=== PATIENT | male | born 1950 | race Caucasian/White ===

== ENCOUNTER → 2020-04-15 16:14 | Outpatient (CLI) | payer BC, SELFPAY ==
[2020-04-15 17:15] LABS: Blood Urea Nitrogen 13 mg/dl (9-20); Estimated Glomerular Filt Rate 84 ml/min (>60); GFR (African American) 102 ML/MIN (>60)
== END ==
PROVIDERS: Visit Provider Family Medicine
DX: D48.7 Neoplasm of uncertain behavior of other specified sites (principal)
CPT/HCPCS: 36415; 82565; 84520

== ENCOUNTER → 2020-04-17 14:34 | Outpatient (CLI) | payer BC, SELFPAY ==
--- NOTE | 2020-04-17 15:25 | CT_ITS ---
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 All CT scans at the facility use one or more dose reduction, viz: automated exposure control, ma/kV adjustment per patient size (including targeted exams where dose is matched to indication, i.e. head), or iterative reconstruction technique. FINDINGS: There is a 3.3 x 2.6 x 3.2 cm complex soft tissue mass in the left neck along the posterior aspect of the submandibular gland lateral to the jugular vein and anterior medial to the sternocleidomastoid. This is heterogeneous in density with areas of internal slight low-density and septations consistent with an enlarged and possibly necrotic lymph node. This is a level IIa node. Inferior to this there is a more solid-appearing andrea area posterior to the sternocleidomastoid and posterior to the jugular vein which measures 3.7 x 2 by 1.9 cm consistent with a level 3 lymph node. The the nasopharynx, uvula, and hypopharynx are unremarkable. There is some asymmetric enlargement of the left vocal fold. This is more prominent appearing on the coronal reformatted images having a somewhat nodular appearance at 1.5 by 1.2 cm. The The epiglottis has an unremarkable appearance. Centrilobular emphysematous changes are present in the lung apices. There is diffuse idiopathic skeletal hyperostosis of the cervical spine. IMPRESSION: 1. Enlarged left vocal fold. Direct visualization suggested. This has a fairly smooth appearance. Neoplasm or polyp involvement is a consideration. 2. Left-sided cervical adenopathy with enlargement of a level IIa and 3 lymph node. Differential diagnosis would include metastatic disease, lymphoma, or reactive process. 3. DISH of the cervical spine Dictated by: Lokesh Razo MD 04/18/2020 07:26 Lokesh Razo MD in [place] 04/18/2020 07:26
== END ==
PROVIDERS: PCP Family Medicine; Visit Provider Family Medicine
DX: D48.7 Neoplasm of uncertain behavior of other specified sites (principal)
CPT/HCPCS: 70491; Q9967

== ENCOUNTER → 2020-05-05 15:40 | Outpatient (CLI) | payer BC, SELFPAY ==
--- NOTE | 2020-05-05 15:47 | XR_ITS ---
PROCEDURE: XR CHEST 2V CLINICAL HISTORY: HX OF HIGH BLOOD PRESSURE COMPARISON: No exams were available for comparison FINDINGS: The cardiomediastinal silhouette and pulmonary vascularity are within normal limits. Atelectatic changes are present in the right infrahilar region. The remaining lungs are clear. No acute bony abnormalities. IMPRESSION: Right middle lobe atelectasis otherwise negative Dictated by: Lokesh Razo MD 05/05/2020 16:36 Lokesh Razo MD in [facility] 05/05/2020 16:36
[2020-05-05 15:57] LABS: Basophils # 0.1 K/mm3 (0-0.2); Basophils % 0.9 % (0.1-2.0); Eosinophils # 0.4 K/mm3 (0.0-0.4); Eosinophils % 4.1 % (0.1-12.0); Hematocrit 45.4 % (42.0-52.0); Hemoglobin 14.8 g/dL (14.1-18.0); Lymphocytes # 2.2 K/mm3 (0.7-4.5); Lymphocytes % 25.8 % (10-50); Mean Corpuscular HGB Conc 32.5 g/dL (31.8-35.4); Mean Corpuscular Hemoglobin 32.1 pg (27.0-31.2); Mean Platelet Volume 8.4 fl (7.4-10.4); Monocytes # 0.7 K/mm3 (0.1-1.0); Monocytes % 7.9 % (1.7-9.3); Neutrophils # 5.3 K/mm3 (1.8-7.8); Neutrophils % 61.3 % (37.0-80.0); Platelet Count 209 K/mm3 (142-424); Red Blood Count 4.59 M/mm3 (4.60-6.20); Red Cell Distribution Width 12.9 % (11.5-17.5); White Blood Count 8.6 K/mm3 (4.8-10.8)
--- NOTE | 2020-05-05 16:07 | ECG_ITS ---
APPROVED REPORT Exam: Resting ECG HR:68 bpm ECG Measurements Heart Rate 68 AXES TN 252 P 52 QRSd 102 QRS 0 QT 420 T 49 QTc 446 <Conclusion> Sinus rhythm with 1st degree AV block with occasional premature ventricular complexes and PAC'S Poor R Wave Progression Abnormal ECG Electronically signed by : Ion Vines, 05/05/2020 17:00:42
[2020-05-05 17:32] LABS: Chloride 94 mmol/L (98-107); Potassium 4.3 mmoL/L (3.5-5.1); Sodium 135 mmol/L (136-145)
[2020-05-05 17:35] LABS: Blood Urea Nitrogen 12 mg/dl (9-20); Estimated Glomerular Filt Rate 84 ml/min (>60); GFR (African American) 102 ML/MIN (>60)
[2020-05-05 17:36] LABS: Anion Gap 10.3 mEq/L (5-15); Calcium 9.5 mg/dl (8.4-10.2); Carbon Dioxide 35 mmol/L (22.0-30.0); Glucose 112 mg/dl (74-100)
[2020-05-05 18:02] LABS: Coronavirus 19 IgG Antibody Negative (Negative); Coronavirus 19 IgM Antibody Negative (Negative)
== END ==
PROVIDERS: Visit Provider Otolaryngology
DX: Z01.89 Encounter for other specified special examinations (principal); C32.0 Malignant neoplasm of glottis; J38.3 Other diseases of vocal cords; R22.1 Localized swelling, mass and lump, neck
CPT/HCPCS: 36415; 71046; 80048; 85025; 86328; 93005

== ENCOUNTER 2020-05-07 08:41 | Day surgery (SDC) | payer BC, SELFPAY ==
[2020-05-05 11:15] VITALS: BMI 32.8
[2020-05-07] VITALS (9 sets, daily range): BP systolic 142–170; BP diastolic 47–87; PULSE 40–89; RESP 15–18; TEMP 36.3–36.6; O2SAT 92–96
--- NOTE | 2020-05-07 09:14 | ECG_ITS ---
APPROVED REPORT Exam: Resting ECG HR:77 bpm ECG Measurements Heart Rate 77 AXES WI 256 P 6 QRSd 92 QRS -4 QT 398 T 49 QTc 450 <Conclusion> Sinus rhythm with 1st degree AV block with frequent premature ventricular complexes in a pattern of bigeminy Old septal changes Abnormal ECG Electronically signed by : Jason Perez, 05/08/2020 07:21:52
--- NOTE | 2020-05-07 09:17 | SUR.PREOP ---
SULTANA PATTERSON NOTIFIED OF HR 38-40. NEW ORDER TO REPEAT EKG. EKG FROM 05/05/20 SHOWED NSR WITH 1ST DEGREE AV BLOCK WITH PVC'S AND PACS.
--- NOTE | 2020-05-07 09:33 | SUR.PREOP ---
Indra STEARNS ICER MACHINE OPERATOR NOTIFIED OF NEW EKG RESULTS. PROCEDURE WILL PROCEED BUT DISCUSSED WITH PT HIS NEED TO FOLLOW UP WITH DR. DANG ABOUT ABNORMAL RESULTS. PT VERBALIZED UNDERSTANDING.
--- NOTE | 2020-05-07 12:44 | HMH.ANESCL ---
[facility] Anesthesia Checklist - Patient Identification Patient Identification: Arm Band, Verbal (Name & ) - Structural Data Admitted From: Home Planned Operative Procedure/s: Microlaryngoscopy Consent for Planned Operative Procedure(s) Verified: Yes Verified Documents: Surgical Consent, History and Physical - NPO Status Verified Time NPO: 00:00 - Chart Verification Results Verified: CBC, BMP - Additional verifications Anesthesia Reactions: No Hx Blood Transfusions: No - Airway Assessment C-Spine Mobility Assessed: Yes TMJ Mobility Assessed: Yes Dentition: Dentures-good fit (Upper) - Neurological Assessment Level of Consciousness: Awake, Alert, Appropriate, Follows Commands Hx Seizures: No Numbness or tingling in extremities: No - Anesthesia Plan Anesthesia Risk discussed: Yes Anesthesia Plan: Verified ASA Class: III Anesthesia Type: General [facility] History I have reviewed the patient's past medical history: Yes Medical History: Reports:: Hyperlipidemia, Hypertension Denies:: Cancer, Diabetes Mellitus Type 1, Diabetes Mellitus Type 2, Internal Pacemaker, MRSA, Seizures *Have you ever received a pneumonia vaccine?: No *Have you received a flu vaccine this season?: No Other Medical History: Reports: Hypothyroidism, Thyroid Disease Comment:: obesity Anesthesia experience/problems:: No prior complications Laterality Cases: Bilateral: Total Knee Replacement Other Surgeries: Yes: Other. No: Pacemaker Amputation: No Fractures: No - *Social History Smoking Status: Former smoker (18 years ago) Alcohol Intake: never Substance Use Type: denies use *Occupational Status:: employed Housing: house Household Members: spouse *Travel in the last 8 weeks: None Family Hx:: Hypertension, Hyperlipidemia
--- NOTE | 2020-05-07 12:47 | HMH.ANESI ---
[facility] Anesthesia Record Part I Intake, IV Amount: 700 Estimated blood loss (mL): 2 Urine output (mL): 0 (NM) Blood Products used (#): none Blood Pressure: 153/86 SaO2: 96 Pulse Rate: 89 Respiratory Rate: 15 Temperature: 97.6 F Patient is:: Awake, Mask O2, Stable Stable to PACU at:: 12:40
--- NOTE | 2020-05-07 13:55 | P.OP_ITS ---
Date of procedure: 05/07/20 Pre-op Diagnosis:: 1. Lesion left vocal cord 2. Sensation of a lump in the left neck 3. Morbid obesity Post-op Diagnosis:: same Procedure performed:: 1. Microlaryngoscopy with biopsy of left vocal cord Surgeon:: Barrera Smith MD VINYL TOP INSTALLER:: Josué Hayes Anesthesia: GETA Estimated blood loss (mL): 2 Operative findings:: same Operative note:: With the patient under general anesthesia maintained with a endotracheal tube which was a little difficult to place by the anesthesiologist and resulted in a little bit of bleeding, the anterior commissure SlimLine laryngoscope was placed in the larynx and hypopharynx was examined. There was some fresh blood on the anterior part of the left vocal cord and on the endotracheal tube. The larynx was irrigated and all of the blood was cleared it probably was less than 2 cc. There was a lump involving the anterior quarter of the left vocal cord, which had a vascular appearance to it. The right vocal cord was normal in both piriform sinuses were normal. Using the straight mini cup forceps 2 biopsies were taken from the mass in the anterior aspect of the left vocal cord and submitted for routine pathology. There was minimal bleeding and that was stopped with topical epinephrine. Because of the vascularity of the lesion there was concerned that there could be more serious bleeding and accordingly the lump was not removed in entirety but a tissue analysis will be obtained first. Patient tolerated procedure well and was sent to recovery in good general condition. Condition: stable Disposition: PACU Complications:: none
--- NOTE | 2020-05-08 06:54 | P.PN_ITS ---
[facility] Anesthesia Record Part II Discharge Time: 13:10 Destination: Surgical Day Care (OP Surgery) PACU nurse assessment reviewed?: Yes Patient Condition:: Good Anesthesia Complications:: None Swallowing reflex intact?: Yes Cyanosis?: No Blood Pressure: 146/81 Pulse Rate: 62 Temperature: 97.6 F Mental Status: Alert & Oriented Pain level:: 0 Nausea and/or vomitting:: None Intake, IV Amount: 0 (Normovolemic)
[2020-05-08 06:55] VITALS: BP 146/81; PULSE 62; TEMP 36.4
== END 2020-05-07 13:36 | disposition home or self-care (01) ==
LOC: OR 08:44
PROVIDERS: PCP Family Medicine; Visit Provider Otolaryngology
PROC: 0CJS8ZZ Inspection of Larynx, Via Natural or Artificial Opening Endoscopic (ICD-10-PCS; CPT 31536; principal; 2020-05-07 10:15)
DX: J38.3 Other diseases of vocal cords (principal); R22.1 Localized swelling, mass and lump, neck; E66.9 Obesity, unspecified; Z68.32 Body mass index [BMI] 32.0-32.9, adult; I10 Essential (primary) hypertension; E78.5 Hyperlipidemia, unspecified; E03.9 Hypothyroidism, unspecified; Z96.653 Presence of artificial knee joint, bilateral; Z87.891 Personal history of nicotine dependence; Z83.438 Family history of other disorder of lipoprotein metabolism and other lipidemia; Z82.49 Family history of ischemic heart disease and other diseases of the circulatory system; Z79.899 Other long term (current) drug therapy
CPT/HCPCS: 31536; 93005; 96374; 96375; J0330; J2405

== ENCOUNTER → 2020-05-20 06:27 | Outpatient (CLI) | payer BC, SELFPAY ==
--- NOTE | 2020-05-20 06:28 | CT_ITS ---
PROCEDURE: CT CHEST WO CON CLINICAL INDICATION: ex smoker Former smoker new diagnosis of squamous cell ca; bx of left vocal cord 05/07/[address] neck, 04/17/20 COMPARISON: No exams were available for comparison TECHNIQUE: Axial images obtained with sagittal and coronal reformats. All CT scans at the facility use one or more dose reduction, viz: automated exposure control, ma/kV adjustment per patient size (including targeted exams where dose is matched to indication, i.e. head), or iterative reconstruction technique. FINDINGS: HEART AND MEDIASTINAL STRUCTURES: There is mild cardiomegaly. Coronary artery calcifications are present. No mediastinal or hilar mass or adenopathy. LUNGS AND PLEURAL SPACES: Centrilobular emphysema with COPD and scattered areas of scarring. There is linear density in the right upper lobe suggesting scarring or atelectatic change. No suspicious nodules are identified. There is a faint 3 mm opacity in the right upper lobe image 24 series 3 nonspecific too small to categorize. No effusions or infiltrates. BONY STRUCTURES: Degenerative changes are present in thoracic spine with osteophytosis with DISH of the mid and lower thoracic spine. DISH also noted of the lower cervical spine. Prominent osteophytes are present at the manubrial and body of the sternum junction. UPPER ABDOMEN: There is a subtle low-density area right aspect of the kidney anteriorly measuring 1.7 cm. This is incompletely imaged and indeterminate. ADDITIONAL FINDINGS: No other significant abnormalities. IMPRESSION: 1. Centrilobular emphysema with COPD and scattered areas of scarring. Faint 3 mm opacity right upper lobe nonspecific too small to categorize. Six-month follow-up may confirm short term stability. 2. No suspicious pulmonary nodules evident and no evidence of mediastinal or hilar adenopathy. 3. Subtle low-density area of the right kidney. Ultrasound may further characterize as cystic or solid. Dictated by: Lokesh Razo MD 05/21/2020 10:38 Lokesh Razo MD in [place] 05/21/2020 10:38
--- NOTE | 2020-05-20 06:28 | CA_ITS ---
APPROVED REPORT EXAM: Comprehensive 2D, Doppler, and color-flow Echocardiogram Radial Router Operator: Nelly Marshall RT(R) Ht: 5 ft 11 in Wt: 253lbs BSA: 2.33 BP: 189/84 mmHg Indications: SOA, bradycardia, CAD, ex smoker, HTN, hyperlipidemia 2D Dimensions LVOT 2.18 cm (M/F) 1.5-2.5 M-Mode Dimensions RVDd 3.09 cm (0.9-2.6) LVDd 5.43 cm (3.5-5.7) LVDs 4.30 cm (3.5-5.7) IVSd 0.99 cm (0.6-1.1) PWd 1.03 cm (0.6-1.1) EF (Teich) 41.90% FS 20.80% EDV (Teich) 143.10 mL ESV (Teich) 83.10 mL Left Ventricle Technically difficult study because of the patient factors and poor acoustic windows, despite the use of definitely contrast endocardial surfaces are poorly visualized. Left atrium is mildly enlarged, left ventricle is normal size, mild concentric left ventricular hypertrophy, visually estimated ejection fraction 50%, there appears to be mild hypokinesis involving the mid to distal septum and apical wall. Diastolic parameters are inconclusive. Right Ventricle Right atrium and right ventricle are normal size and contractility. Aortic Valve Aortic valve is minimally thickened and fibrosed, there is no aortic stenosis or aortic insufficiency. Mitral Valve Multiple leaflets are minimally thickened, there is mild mitral regurgitation. Tricuspid Valve Tricuspid valve is grossly normal, there is mild tricuspid regurgitation, tricuspid regurgitation jet versus inadequate for calculation of the right ventricular systolic pressure. Pulmonic Valve Pulmonic valve is poorly visualized. Great Vessels Aortic root is normal size. Pericardium No significant pericardial effusion noted Conclusion 1. Technically difficult study as described above. 2. Mildly in the left atrium, normal left ventricular size, mild concentric left ventricular hypertrophy, visually estimated ejection fraction 50% with segmental wall motion abnormality described above, definitely contrast was utilized to delineate the endocardial surfaces, there is no left ventricular thrombus seen. Diastolic parameters are inconclusive. 3. Mild mitral and tricuspid regurgitation. Electronically signed by : Diomedes Hewitt, 05/21/2020 13:24:36
--- NOTE | 2020-05-20 06:28 | CA_ITS ---
APPROVED REPORT Exam: Pharmacologic Technologist: Patsy Stanford Ht: 5 ft 11 in Wt: 240 lbs BSA: 2.28 m2 HR: 51 bpm BP: 162/67 mmHg Indications: Shortness of Breath Medical History Medications: Lisinopril,,,,, Levothyroxine,,,,, Metoprolol,,,,, Atorvastatin,,,,, HCTZ,,,,, SpirOnolactone,,,,, OmeGA 3,,,,, Stress Test Details Test: LEXISCAN HR Resting HR: 50 bpm Max Heart Rate (APMHR): 153 bpm Max HR Achieved: 77 bpm Target HR (85% APMHR): 130 bpm % of APMHR: 50 Recovery HR: 64 bpm BP Resting BP: 162.0/67.0 mmHg Max BP: 169.0/72.0 mmHg Recovery BP: 144.0/78.0 mmHg ECG Clinical Exercise duration: 04:06 min Highest Stage Achieved: Exercise capacity: 1.0 METs Stress ECG Conclusion Resting ECG: Sinus bradycardia, frequent PVCs, Ventricular couplets, cannot rule out old anterior-septal OK. Symptoms: Mild chest discomfort, mild stomach discomfort, mild malaise. Arrhythmias/Ectopy: Frequent PVCs, periods of ventricular bigeminy, rare ventricular couplets. ST-T Changes: 0.5 mm - [address] depression inferiorly. Conclusion: Unremarkable Lexiscan stress. Myoview images reported separately. Test Summary REST . . . . . . . Resting REST 05:18 . . 50 . 162/ 67 . . Stage 1 . . . . . . . Myoview Injected Stage 1 01:00 . . 64 . . . . Stage 2 01:00 . . 69 . . . . Stage 3 01:00 . . 62 . 157/ 99 . . Stage 4 01:00 . . 64 . . . . Stage 4 01:06 . . 70 . . . Stop exercise at 04:06 RECOVERY 01:00 . . 69 . 169/ 72 . . RECOVERY 02:00 . . 68 . 169/ 73 . . RECOVERY 03:00 . . 63 . 169/ 73 . . RECOVERY 03:41 . . 61 . 144/ 78 . . Electronically signed by : Diomedes Hewitt, 05/22/2020 13:51:28
--- NOTE | 2020-05-20 06:28 | NM_ITS ---
APPROVED REPORT Exam: Nuclear Stress Test Indication: HTN, HYPERLIPIDEMIA, SOB, ABN EKG Patient Location: Outpatient Stress Tech: Patsy Stanford NM Tech:Tricia Abernathy, ARRT, RT (R)(N) Ht: 5 ft 11 in Wt: 240 lbs HR: 51 bpm BP: 162/67 mmHg BSA: 2.28 m2 BMI: 33.4 Procedure: Patient received a 0.4 mg of intravenous Lexiscan, resting heart rate 51 bpm, resting blood pressure 162/67 mmHg, with Lexiscan maximum heart rate achived was 70 bpm which is Less than 85 % of the maximum predicted heart rate and blood pressure was 157/99 mmHg. MILD C.P. Electrocardiogram Resting electrocardiogram showed sinus rhythm with frequent premature ectopic beats, with Lexiscan there is less than 1.[address] segment depression noted from the baseline EKG. The EKG portion of the Lexiscan is nondiagnostic. Cardiac Stress and Resting SPECT Images: Cardiac Stress and Resting SPECT images were obtained using technetium 99m Myoview 32.3 mCi stress and 10.18 mCi at rest. Gated SPECT for the analysis of segmental wall motion and calculation of the ejection fraction also done. Cardiac stress and resting SPECT images show fixed defect involving the inferior and posterior basal wall with decreased contractility gated SPECT is likely secondary to myocardial scarring without significant otis-infarct ischemia. Computer derived ejection fraction is 23% with marked inferior and posterior basal wall hypokinesis, right ventricle is mildly enlarged with normal contractility. However during the study frequent premature ectopic complexes were present which may underestimate the ejection fraction by gated SPECT. Conclusion: 1. The EKG portion of the Lexiscan Myoview is nondiagnostic pain 2. Scintigraphic evidence of myocardial scarring involving the inferior posterior basal wall, computer derived ejection fraction is 23% as described above with segmental wall motion abnormality, right ventricle is mildly enlarged with normal contractility. 3. Abnormal Lexiscan Myoview study. Electronically signed by : Diomedes Hweitt, 05/22/2020 13:56:27
--- NOTE | 2020-05-20 08:22 | HMH.ITSHM ---
Current Home Medications as stated by this patient Jason Marroquin or primary care sales representative. []SPIRONOLACTONE OMEGA 3 METOPROLOL LISINOPRIL LEVOTHYROXINE HCTZ ATORVASTATIN
[2020-05-20 10:21] LABS: Anion Gap 10.5 mEq/L (5-15); Blood Urea Nitrogen 18 mg/dl (9-20); Calcium 9.6 mg/dl (8.4-10.2); Carbon Dioxide 33 mmol/L (22.0-30.0); Chloride 96 mmol/L (98-107); Estimated Glomerular Filt Rate 75 ml/min (>60); GFR (African American) 90 ML/MIN (>60); Glucose 129 mg/dl (74-100); Potassium 4.5 mmoL/L (3.5-5.1); Sodium 135 mmol/L (136-145)
[2020-05-20 10:30] LABS: NT Pro Brain Natriuretic Pep. 737 pg/mL (0-125)
== END ==
PROVIDERS: PCP Family Medicine; Visit Provider Internal Medicine Cardiovascular Disease
DX: R06.00 Dyspnea, unspecified (principal); R94.31 Abnormal electrocardiogram [ECG] [EKG]; R00.0 Tachycardia, unspecified; E78.5 Hyperlipidemia, unspecified; I10 Essential (primary) hypertension; G47.33 Obstructive sleep apnea (adult) (pediatric); R06.83 Snoring; R40.0 Somnolence; R60.9 Edema, unspecified; Z87.891 Personal history of nicotine dependence
CPT/HCPCS: 36415; 71250; 78452; 80048; 83880; 93017; 93225; 93226; 93306; A9502; J2785; Q9957

== ENCOUNTER → 2020-05-21 15:53 | Outpatient (CLI) | payer BC, SELFPAY | PROVIDERS: PCP Family Medicine; Visit Provider Internal Medicine Cardiovascular Disease | DX: G47.33 Obstructive sleep apnea (adult) (pediatric) (principal); R40.0 Somnolence; R06.83 Snoring | CPT/HCPCS: G0399 ==

== ENCOUNTER → 2020-05-28 13:44 | Outpatient (CLI) | payer BC, SELFPAY ==
--- NOTE | 2020-05-28 13:52 | US_ITS ---
PROCEDURE: US KIDNEY CLINICAL INDICATION: MALIGNANT NEOPLASM OF GLOTTIS COMPARISON: CT CT CHEST WO CON from 05/20/2020 FINDINGS: The right kidney is 12 x 6 by 5 cm. There is a 2 cm cyst in the upper pole. No hydronephrosis. The left kidney is 10 x 4 by 5 cm. No hydronephrosis or renal mass evident. Bilateral renal blood flow is noted. IMPRESSION: 2 cm cyst upper pole right kidney otherwise negative bilateral renal ultrasound Dictated by: Lokesh Razo MD 05/29/2020 07:23 Lokesh Razo MD in [place] 05/29/2020 07:23
== END ==
PROVIDERS: PCP Family Medicine; Visit Provider Internal Medicine Medical Oncology
DX: C32.0 Malignant neoplasm of glottis (principal)
CPT/HCPCS: 76770

== ENCOUNTER → 2020-06-02 16:49 | Outpatient (CLI) | payer BC, SELFPAY ==
[2020-06-02 17:03] LABS: Basophils # 0.1 K/mm3 (0-0.2); Basophils % 0.6 % (0.1-2.0); Eosinophils # 0.4 K/mm3 (0.0-0.4); Eosinophils % 3.9 % (0.1-12.0); Hematocrit 44.6 % (42.0-52.0); Hemoglobin 15.4 g/dL (14.1-18.0); Lymphocytes # 2.2 K/mm3 (0.7-4.5); Lymphocytes % 23.4 % (10-50); Mean Corpuscular HGB Conc 34.5 g/dL (31.8-35.4); Mean Corpuscular Hemoglobin 33.2 pg (27.0-31.2); Mean Corpuscular Volume 96.2 fl (80-94); Mean Platelet Volume 8.8 fl (7.4-10.4); Monocytes # 0.6 K/mm3 (0.1-1.0); Monocytes % 6.5 % (1.7-9.3); Neutrophils # 6.3 K/mm3 (1.8-7.8); Neutrophils % 65.6 % (37.0-80.0); Platelet Count 239 K/mm3 (142-424); Red Blood Count 4.64 M/mm3 (4.60-6.20); Red Cell Distribution Width 13.4 % (11.5-17.5); White Blood Count 9.6 K/mm3 (4.8-10.8)
[2020-06-02 19:15] LABS: Chloride 94 mmol/L (98-107); Sodium 134 mmol/L (136-145)
[2020-06-02 19:16] LABS: Potassium 4.6 mmoL/L (3.5-5.1)
[2020-06-02 19:18] LABS: Blood Urea Nitrogen 15 mg/dl (9-20); Estimated Glomerular Filt Rate 84 ml/min (>60); GFR (African American) 102 ML/MIN (>60)
[2020-06-02 19:19] LABS: Anion Gap 16.6 mEq/L (5-15); Calcium 9.7 mg/dl (8.4-10.2); Carbon Dioxide 28 mmol/L (22.0-30.0); Glucose 99 mg/dl (74-100)
[2020-06-02 20:52] LABS: Coronavirus 19 IgG Antibody Negative (Negative); Coronavirus 19 IgM Antibody Negative (Negative)
== END ==
PROVIDERS: Visit Provider Internal Medicine
DX: Z01.818 Encounter for other preprocedural examination (principal); R06.00 Dyspnea, unspecified; R94.30 Abnormal result of cardiovascular function study, unspecified
CPT/HCPCS: 36415; 80048; 85025; 86328

== ENCOUNTER 2020-06-03 08:54 | Day surgery (SDC) | payer BC, SELFPAY ==
[2020-06-03] VITALS (11 sets, daily range): BP systolic 97–160; BP diastolic 50–91; PULSE 51–71; RESP 20; TEMP 36.1; O2SAT 92–96; BMI 34.8
--- NOTE | 2020-06-03 | IR_ITS ---
APPROVED REPORT Patient Location: Outpatient PROCEDURES Left heart catheterization Left ventriculogram Selective coronary angiogram INDICATION High risk abnormal Myoview, Angina pectoris Informed consent was obtained prior to the procedure. COMPLICATIONS NONE Estimated Blood Loss: LESS THAN 10 ML TECHNIQUE One percent lidocaine used to anesthetize the right anterior aspect of the wrist. The right radial artery was accessed via the Seldinger technique. A 6 Maltese sheath was placed in the right radial artery. 2.5 mg of verapamil, 800 mcg of nitroglycerin, 1mg Lidocaine and 5000 U Heparin were given through the arterial sheath. The Poppa and 4 Maltese JL4 catheter were also used to perform left heart catheterization, left ventriculogram and selective coronary angiogram. At the end of the procedure the sheath was removed good hemostasis was achieved using Traclet band, patient was transferred to the postop holding area in stable condition. ANGIOGRAPHIC RESULTS The left main artery Normal The left anterior descending artery Has proximal 10% luminal irregularities followed by mid vessel 10% luminal irregularities The circumflex artery Dominant vessel with diffuse 10% luminal irregularities The right coronary artery Small nondominant proximally subtotally occluded. The distal vessel fills via bridging collaterals and is a small caliber vessel supplying a small amount of myocardium The BROTHERS ventriculogram reveals Preserved at 55 The left ventricular end-diastolic pressure 15 mmHg IMPRESSION Severe single-vessel coronary disease as described above which correlates perfectly to the Myoview Mild disease in the LAD and dominant circumflex artery Preserved ejection fraction Elevated LVEDP PLAN 1. Continue medical management Electronically signed by : Ramesh Cerda, 06/03/2020 11:35:53
== END 2020-06-03 14:24 | disposition home or self-care (01) ==
LOC: CATHLAB 08:55
PROVIDERS: PCP Internal Medicine Cardiovascular Disease; Visit Provider Internal Medicine
DX: I25.118 Atherosclerotic heart disease of native coronary artery with other forms of angina pectoris (principal); R94.39 Abnormal result of other cardiovascular function study; E03.9 Hypothyroidism, unspecified; I10 Essential (primary) hypertension; Z87.891 Personal history of nicotine dependence; E78.5 Hyperlipidemia, unspecified; Z79.899 Other long term (current) drug therapy
CPT/HCPCS: 93458; 99152; 99153; C1725; C1760; C1769; J1644; Q9967

== ENCOUNTER → 2020-07-03 11:49 | Outpatient (CLI) | payer BC, SELFPAY | PROVIDERS: PCP Family Medicine; Visit Provider Internal Medicine Medical Oncology | DX: Z20.828 Contact with and (suspected) exposure to other viral communicable diseases (principal); U07.1 COVID-19 | CPT/HCPCS: U0003 ==

== ENCOUNTER 2020-07-07 12:19 | Outpatient (CLI) | payer BC, SELFPAY ==
[2020-07-07 12:20] VITALS: BMI 44.1
[2020-07-07 12:55] LABS: Basophils # 0.1 K/mm3 (0-0.2); Basophils % 0.6 % (0.1-2.0); Eosinophils # 0.3 K/mm3 (0.0-0.4); Eosinophils % 2.5 % (0.1-12.0); Hematocrit 42.7 % (42.0-52.0); Hemoglobin 14.4 g/dL (14.1-18.0); Lymphocytes # 1.9 K/mm3 (0.7-4.5); Lymphocytes % 18.5 % (10-50); Mean Corpuscular HGB Conc 33.7 g/dL (31.8-35.4); Mean Corpuscular Hemoglobin 32.5 pg (27.0-31.2); Mean Corpuscular Volume 96.5 fl (80-94); Mean Platelet Volume 9.2 fl (7.4-10.4); Monocytes # 0.5 K/mm3 (0.1-1.0); Monocytes % 4.6 % (1.7-9.3); Neutrophils # 7.6 K/mm3 (1.8-7.8); Neutrophils % 73.9 % (37.0-80.0); Platelet Count 253 K/mm3 (142-424); Red Blood Count 4.43 M/mm3 (4.60-6.20); Red Cell Distribution Width 12.7 % (11.5-17.5); White Blood Count 10.2 K/mm3 (4.8-10.8)
[2020-07-07 13:15] LABS: Chloride 96 mmol/L (98-107)
[2020-07-07 13:16] LABS: Potassium 4.1 mmoL/L (3.5-5.1); Sodium 133 mmol/L (136-145)
[2020-07-07 13:18] LABS: Alanine Aminotransferase 35 U/L (12-78); Alkaline Phosphatase 76 U/L (38-126); Aspartate Amino Transferase 35 U/L (17-59); Bilirubin,Total 0.7 mg/dl (0.2-1.3); Blood Urea Nitrogen 16 mg/dl (9-20); Creatinine Clearance Estimated 59 mL/min (50-200); Estimated Glomerular Filt Rate 74 ml/min (>60); GFR (African American) 90 ML/MIN (>60)
[2020-07-07 13:19] LABS: Albumin Level 4.2 g/dl (3.5-5.0); Albumin/Globulin Ratio 1.3 (1.1-1.8); Anion Gap 10.1 mEq/L (5-15); Calcium 9.1 mg/dl (8.4-10.2); Carbon Dioxide 31 mmol/L (22.0-30.0); Globulin 3.2 g/dL (1.3-3.2); Glucose 195 mg/dl (74-100); Total Protein,Serum 7.4 g/dl (6.3-8.2)
[2020-07-07 13:25] VITALS: BP 124/65; PULSE 49; RESP 20; TEMP 36.4; O2SAT 98
[2020-07-07 14:05] VITALS: BP 111/62; PULSE 50; RESP 20; O2SAT 97
[2020-07-07 14:35] VITALS: BP 125/60; PULSE 48; RESP 20; O2SAT 97
[2020-07-07 14:45] VITALS: BP 119/69; PULSE 51; RESP 20; O2SAT 98
== END 2020-07-07 14:45 | disposition home or self-care (01) ==
LOC: INF 12:19
PROVIDERS: Visit Provider Internal Medicine Medical Oncology
DX: Z51.11 Encounter for antineoplastic chemotherapy (principal); C76.0 Malignant neoplasm of head, face and neck
CPT/HCPCS: 80053; 85025; 96413; J8501; J9045; Q0166

== ENCOUNTER 2020-07-14 11:30 | Outpatient (CLI) | payer BC, SELFPAY ==
[2020-07-14 11:42] VITALS: BMI 43.0
[2020-07-14 12:16] LABS: Basophils % 0.3 % (0.1-2.0); Eosinophils # 0.4 K/mm3 (0.0-0.4); Hematocrit 42.4 % (42.0-52.0); Hemoglobin 14.5 g/dL (14.1-18.0); Lymphocytes # 1.8 K/mm3 (0.7-4.5); Lymphocytes % 14.7 % (10-50); Mean Corpuscular HGB Conc 34.2 g/dL (31.8-35.4); Mean Corpuscular Hemoglobin 33.1 pg (27.0-31.2); Mean Corpuscular Volume 96.7 fl (80-94); Mean Platelet Volume 9.1 fl (7.4-10.4); Monocytes # 0.5 K/mm3 (0.1-1.0); Monocytes % 4.3 % (1.7-9.3); Neutrophils # 9.3 K/mm3 (1.8-7.8); Neutrophils % 77.7 % (37.0-80.0); Platelet Count 237 K/mm3 (142-424); Red Blood Count 4.39 M/mm3 (4.60-6.20); Red Cell Distribution Width 13.5 % (11.5-17.5)
[2020-07-14 12:24] LABS: Potassium 4.2 mmoL/L (3.5-5.1); Sodium 133 mmol/L (136-145)
[2020-07-14 12:26] LABS: Alanine Aminotransferase 36 U/L (12-78); Aspartate Amino Transferase 28 U/L (17-59); Blood Urea Nitrogen 30 mg/dl (9-20); Creatinine Clearance Estimated 59 mL/min (50-200); Estimated Glomerular Filt Rate 74 ml/min (>60); GFR (African American) 90 ML/MIN (>60)
[2020-07-14 12:27] LABS: Albumin Level 4.2 g/dl (3.5-5.0); Albumin/Globulin Ratio 1.3 (1.1-1.8); Alkaline Phosphatase 70 U/L (38-126); Calcium 9.2 mg/dl (8.4-10.2); Carbon Dioxide 31 mmol/L (22.0-30.0); Globulin 3.3 g/dL (1.3-3.2); Glucose 176 mg/dl (74-100); Total Protein,Serum 7.5 g/dl (6.3-8.2)
[2020-07-14 12:30] VITALS: BP 101/53; PULSE 51; RESP 18; TEMP 36.4; O2SAT 99
[2020-07-14 13:00] VITALS: BP 93/41; PULSE 48; RESP 18; O2SAT 98
[2020-07-14 13:30] VITALS: BP 104/59; PULSE 56; RESP 18; O2SAT 98
[2020-07-14 13:40] VITALS: BP 102/58; PULSE 52; RESP 18; O2SAT 98
[2020-07-14 13:52] LABS: Anion Gap 11.2 mEq/L (5-15); Chloride 95 mmol/L (98-107)
== END 2020-07-14 13:45 | disposition home or self-care (01) ==
LOC: INF 11:40
PROVIDERS: Visit Provider Internal Medicine Medical Oncology
DX: Z51.11 Encounter for antineoplastic chemotherapy (principal); C76.0 Malignant neoplasm of head, face and neck
CPT/HCPCS: 80053; 85025; 96413; J8501; J9045; Q0166

== ENCOUNTER 2020-07-21 11:18 | Outpatient (CLI) | payer BC, SELFPAY ==
[2020-07-21 11:19] VITALS: BMI 43.0
[2020-07-21 12:01] LABS: Basophils # 0.1 K/mm3 (0-0.2); Basophils % 0.6 % (0.1-2.0); Eosinophils # 0.2 K/mm3 (0.0-0.4); Eosinophils % 1.6 % (0.1-12.0); Hematocrit 42.9 % (42.0-52.0); Hemoglobin 14.8 g/dL (14.1-18.0); Lymphocytes # 1.2 K/mm3 (0.7-4.5); Lymphocytes % 12.9 % (10-50); Mean Corpuscular HGB Conc 34.4 g/dL (31.8-35.4); Mean Corpuscular Hemoglobin 33.1 pg (27.0-31.2); Mean Corpuscular Volume 96.1 fl (80-94); Mean Platelet Volume 8.7 fl (7.4-10.4); Monocytes # 0.6 K/mm3 (0.1-1.0); Monocytes % 6.8 % (1.7-9.3); Neutrophils # 7.1 K/mm3 (1.8-7.8); Platelet Count 220 K/mm3 (142-424); Red Blood Count 4.47 M/mm3 (4.60-6.20); Red Cell Distribution Width 13.4 % (11.5-17.5); White Blood Count 9.1 K/mm3 (4.8-10.8)
[2020-07-21 12:02] LABS: Chloride 96 mmol/L (98-107); Potassium 4.4 mmoL/L (3.5-5.1); Sodium 134 mmol/L (136-145)
[2020-07-21 12:05] LABS: Alanine Aminotransferase 28 U/L (12-78); Albumin Level 4.6 g/dl (3.5-5.0); Albumin/Globulin Ratio 1.2 (1.1-1.8); Alkaline Phosphatase 99 U/L (38-126); Anion Gap 12.4 mEq/L (5-15); Aspartate Amino Transferase 25 U/L (17-59); Bilirubin,Total 0.6 mg/dl (0.2-1.3); Blood Urea Nitrogen 24 mg/dl (9-20); Carbon Dioxide 30 mmol/L (22.0-30.0); Creatinine Clearance Estimated 59 mL/min (50-200); Estimated Glomerular Filt Rate 74 ml/min (>60); GFR (African American) 90 ML/MIN (>60); Globulin 3.8 g/dL (1.3-3.2); Total Protein,Serum 8.4 g/dl (6.3-8.2)
[2020-07-21 12:06] LABS: Calcium 9.4 mg/dl (8.4-10.2); Glucose 88 mg/dl (74-100)
[2020-07-21 12:17] VITALS: BP 124/56; PULSE 58; RESP 18; TEMP 36.4; O2SAT 98
[2020-07-21 12:47] VITALS: BP 122/54; PULSE 59; RESP 18; O2SAT 98
[2020-07-21 13:17] VITALS: BP 118/51; PULSE 51; RESP 18; O2SAT 97
[2020-07-21 13:35] VITALS: BP 116/61; PULSE 50; RESP 18; O2SAT 98
== END 2020-07-21 13:35 | disposition home or self-care (01) ==
LOC: INF 11:18
PROVIDERS: PCP Family Medicine; Visit Provider Internal Medicine Medical Oncology
DX: Z51.11 Encounter for antineoplastic chemotherapy (principal); C76.0 Malignant neoplasm of head, face and neck
CPT/HCPCS: 80053; 85025; 96413; J8501; J9045; Q0166

== ENCOUNTER → 2020-07-27 12:36 | Outpatient (CLI) | payer BC, SELFPAY ==
[2020-07-27 13:30] LABS: Basophils % 0.3 % (0.1-2.0); Eosinophils # 0.2 K/mm3 (0.0-0.4); Eosinophils % 2.3 % (0.1-12.0); Hematocrit 41.2 % (42.0-52.0); Lymphocytes % 12.3 % (10-50); Mean Corpuscular Hemoglobin 32.4 pg (27.0-31.2); Mean Corpuscular Volume 95.2 fl (80-94); Mean Platelet Volume 8.5 fl (7.4-10.4); Monocytes # 0.6 K/mm3 (0.1-1.0); Monocytes % 7.3 % (1.7-9.3); Neutrophils # 6.6 K/mm3 (1.8-7.8); Neutrophils % 77.9 % (37.0-80.0); Platelet Count 201 K/mm3 (142-424); Red Blood Count 4.32 M/mm3 (4.60-6.20); Red Cell Distribution Width 13.8 % (11.5-17.5); White Blood Count 8.5 K/mm3 (4.8-10.8)
[2020-07-27 14:31] LABS: Chloride 98 mmol/L (98-107); Potassium 4.9 mmoL/L (3.5-5.1); Sodium 134 mmol/L (136-145)
[2020-07-27 14:34] LABS: Alanine Aminotransferase 24 U/L (12-78); Albumin Level 4.1 g/dl (3.5-5.0); Albumin/Globulin Ratio 1.2 (1.1-1.8); Alkaline Phosphatase 81 U/L (38-126); Anion Gap 12.9 mEq/L (5-15); Aspartate Amino Transferase 22 U/L (17-59); Bilirubin,Total 0.7 mg/dl (0.2-1.3); Blood Urea Nitrogen 52 mg/dl (9-20); Calcium 9.7 mg/dl (8.4-10.2); Carbon Dioxide 28 mmol/L (22.0-30.0); Estimated Glomerular Filt Rate 38 ml/min (>60); GFR (African American) 46 ML/MIN (>60); Globulin 3.4 g/dL (1.3-3.2); Glucose 106 mg/dl (74-100); Total Protein,Serum 7.5 g/dl (6.3-8.2)
[2020-07-27 14:36] LABS: Coronavirus 19 IgG Antibody Positive (Negative)
[2020-07-27 14:38] LABS: Coronavirus 19 IgM Antibody Positive (Negative)
== END ==
PROVIDERS: Visit Provider Internal Medicine Medical Oncology
DX: Z20.828 Contact with and (suspected) exposure to other viral communicable diseases (principal); C76.0 Malignant neoplasm of head, face and neck; U07.1 COVID-19
CPT/HCPCS: 36415; 80053; 85025; 86328

== ENCOUNTER 2020-07-28 13:15 | Outpatient (CLI) | payer BC, SELFPAY ==
[2020-07-28 13:00] VITALS: BP 105/64; PULSE 68; RESP 20; TEMP 36.6; O2SAT 100
[2020-07-28 13:30] VITALS: BP 101/69; PULSE 69; RESP 20; O2SAT 99
[2020-07-28 14:00] VITALS: BP 99/66; PULSE 67; RESP 20; O2SAT 99
[2020-07-28 14:30] VITALS: BP 107/65; PULSE 67; RESP 20; O2SAT 99
[2020-07-28 15:00] VITALS: BP 101/69; PULSE 64; RESP 20; O2SAT 100
== END 2020-07-28 15:10 | disposition home or self-care (01) ==
LOC: INF 13:15
PROVIDERS: Visit Provider Internal Medicine Medical Oncology
DX: C76.0 Malignant neoplasm of head, face and neck (principal)
CPT/HCPCS: 96360; 96361

== ENCOUNTER 2020-08-02 22:08 | Inpatient (IN) | payer BC, SELFPAY ==
[2020-08-02 22:09] VITALS: BP 72/42; PULSE 93; RESP 22; TEMP 35.9; O2SAT 92; BMI 34.9
[2020-08-02 22:12] LABS: ABG Base Excess -13.7 mmol/L (-2.4-2.3); ABG HCO3 14.5 mmhg (22.0-26.0); ABG PCO2 38.8 mmhg (35.0-45.0); ABG PO2 71.7 mmhg (80-100); ABG TCO2 15.7 mmhg (23-27); Oxygen 6 %
[2020-08-02 22:13] LABS: ABG PH 7.19 mmol/L (7.35-7.45)
[2020-08-02 22:14] VITALS: BMI 39.0
--- NOTE | 2020-08-02 22:15 | XR_ITS ---
PROCEDURE: XR CHEST PORTABLE CLINICAL HISTORY: AMS Known esophageal cancer undergoing chemo therapy and radiation therapy COMPARISON: CR XR CHEST 2V from 05/05/[address] CHEST WO CON from 05/20/2020 FINDINGS: Seven poor inspiratory effort. There is minimal right basilar atelectasis and/or scarring. Right upper lung field and left lung escalante are clear. There is mild generalized cardiomegaly however is no pulmonary congestion and there is no pleural fluid. Dilated loops of hepatic flexure of the colon are seen just beneath right hemidiaphragm. IMPRESSION: Right basilar atelectasis or scarring, a minimal a developing pneumonic infiltrate cannot be entirely excluded Dictated by: Dr. Bienvenido Russell MD 08/03/2020 07:32 Dr. Bienvenido Russell MD in [place] 08/03/2020 07:32
[2020-08-02 22:22] LABS: Microscopic, Urine URINE MICROSCOPIC (MICROSCOPIC)
[2020-08-02 22:27] LABS: Basophils % 0.2 % (0.1-2.0); Eosinophils % 0.3 % (0.1-12.0); Hematocrit 42.5 % (42.0-52.0); Hemoglobin 13.4 g/dL (14.1-18.0); Lymphocytes # 0.6 K/mm3 (0.7-4.5); Lymphocytes % 6.6 % (10-50); Mean Corpuscular HGB Conc 31.7 g/dL (31.8-35.4); Mean Corpuscular Hemoglobin 32.6 pg (27.0-31.2); Mean Corpuscular Volume 102.9 fl (80-94); Mean Platelet Volume 10.1 fl (7.4-10.4); Monocytes # 0.6 K/mm3 (0.1-1.0); Monocytes % 6.1 % (1.7-9.3); Neutrophils # 7.9 K/mm3 (1.8-7.8); Neutrophils % 86.7 % (37.0-80.0); Platelet Count 165 K/mm3 (142-424); Red Blood Count 4.13 M/mm3 (4.60-6.20); Red Cell Distribution Width 14.3 % (11.5-17.5); White Blood Count 9.1 K/mm3 (4.8-10.8)
[2020-08-02 22:29] LABS: MANUAL DIFFERENTIAL MANUAL DIFFERENTIAL (MANUAL DIFF)
[2020-08-02 22:30] VITALS: BP 83/56; PULSE 88; RESP 17; O2SAT 97
--- NOTE | 2020-08-02 22:30 | PC.NURSE ---
Pt in COVID isolation precautions.
[2020-08-02 22:31] LABS: Ammonia < 9 umol/L (9-30)
[2020-08-02 22:32] LABS: Lactic Acid 1.5 mmol/L (0.7-2.1)
[2020-08-02 22:33] LABS: Alanine Aminotransferase 85 U/L (12-78); Albumin Level 4.1 g/dl (3.5-5.0); Albumin/Globulin Ratio 0.9 (1.1-1.8); Alkaline Phosphatase 85 U/L (38-126); Anion Gap 24.8 mEq/L (5-15); Aspartate Amino Transferase 106 U/L (17-59); Bilirubin,Total 0.5 mg/dl (0.2-1.3); Calcium 9.6 mg/dl (8.4-10.2); Carbon Dioxide 18 mmol/L (22.0-30.0); Chloride 104 mmol/L (98-107); Creatinine Clearance Estimated 11 mL/min (50-200); Estimated Glomerular Filt Rate 4 ml/min (>60); GFR (African American) 5 ML/MIN (>60); Globulin 4.5 g/dL (1.3-3.2); Glucose 160 mg/dl (74-100); Potassium 4.8 mmoL/L (3.5-5.1); Sodium 142 mmol/L (136-145); Total Protein,Serum 8.6 g/dl (6.3-8.2)
--- NOTE | 2020-08-02 22:33 | PC.NURSE ---
Pt arrived alert to name and . He is able to sit himself up in bed and have a conversation with staff. Pupils 3mm, PERRL, unable to palpate peripheral pulses, decreased cap refill to all extremities. Pt able to maintain airway and suction being provided prn d/t saliva r/t throat cancer. Rectal temp of 96.6, warm IV fluid infusing and warm blankets applied.
--- NOTE | 2020-08-02 22:34 | HMH.EDAMS ---
ED Disposition Clinical Impression: Severe sepsis with acute organ dysfunction, Septic shock, COVID-19 virus detected, Obesity (BMI 30-39.9), Squamous cell carcinoma, Metabolic acidosis Acute renal failure (ARF) Qualifiers: Acute renal failure type: unspecified Qualified Code(s): N17.9 - Acute kidney failure, unspecified Disposition: Admitted As Inpatient Condition on Discharge: Critical - Critical Care Critical Care Time: Yes Attestation: On 08/02/20, the high probability of a clinically significant, sudden or life threatening deterioration of the following system(s) required my full and direct attention, intervention and personal management. The time I documented below is in addition to time spent performing reported procedures but includes the following listed in this critical care notation. Total Critical Care Time: 90 Vital system(s) involved:: Respiratory Failure, Renal Failure, Shock (Septic) My critical care processes included: Assessment & monitoring of V/S, Initial and Re-exams, Data Review/Interpretation, Medication Orders and management, Documentation Medical Decision Making - Medical Records Medical records reviewed: Yes: I reviewed the patient's medical records. - Rfeeman Inquiry Pt receiving controlled substance: No Vital Signs: 08/02/20 22:09 08/02/20 22:30 08/02/20 23:00 Temperature 96.6 F L Temperature Source Rectal Pulse Rate [Apical] 93 H 88 92 H Respiratory Rate 22 17 17 Blood Pressure [Right Arm] 72/42 L 83/56 L 96/54 L Blood Pressure Mean [Right Arm] 52 65 68 Blood Pressure Source [Right Arm] Manual Cuff/ Doppler Automatic Cuff Automatic Cuff Blood Pressure Position [Right Arm] Supine Supine Supine 02 Sat by Pulse Oximetry 92 L 97 94 L Oxygen Delivery Method Nasal Cannula Nasal Cannula Nasal Cannula Oxygen Flow Rate (LPM) 5 6 6 08/02/20 23:45 08/03/20 00:00 08/03/20 00:30 Temperature 97.9 F Temperature Source Oral Pulse Rate [Apical] 92 H 93 H Respiratory Rate 16 15 Blood Pressure [Right Arm] 100/51 L 83/60 L Blood Pressure Mean [Right Arm] 67 67 Blood Pressure Source [Right Arm] Automatic Cuff Automatic Cuff Blood Pressure Position [Right Arm] Supine Supine 02 Sat by Pulse Oximetry Oxygen Delivery Method Nasal Cannula Nasal Cannula Oxygen Flow Rate (LPM) 6 6 08/03/20 00:45 08/03/20 01:00 08/03/20 01:30 Temperature Temperature Source Pulse Rate [Apical] 92 H 93 H 99 H Respiratory Rate 14 20 Blood Pressure [Right Arm] 83/60 L 85/45 L 80/40 L Blood Pressure Mean [Right Arm] 67 58 53 Blood Pressure Source [Right Arm] Automatic Cuff Automatic Cuff Automatic Cuff Blood Pressure Position [Right Arm] Supine Supine Supine 02 Sat by Pulse Oximetry 96 90 L 87 L Oxygen Delivery Method Nasal Cannula Nasal Cannula Nasal Cannula Oxygen Flow Rate (LPM) 6 6 6 08/03/20 01:48 08/03/20 02:00 08/03/20 02:15 Temperature Temperature Source Pulse Rate [Apical] 99 H 89 90 Respiratory Rate 15 Blood Pressure [Right Arm] 86/37 L 79/41 L 86/43 L Blood Pressure Mean [Right Arm] 53 53 57 Blood Pressure Source [Right Arm] Automatic Cuff Automatic Cuff Automatic Cuff Blood Pressure Position [Right Arm] Supine Supine Supine 02 Sat by Pulse Oximetry 87 L 87 L 87 L Oxygen Delivery Method Nasal Cannula Nasal Cannula Nasal Cannula Oxygen Flow Rate (LPM) 6 4 4 08/03/20 02:30 08/03/20 02:45 08/03/20 03:00 Temperature Temperature Source Pulse Rate [Apical] 88 93 H 87 Respiratory Rate 13 13 16 Blood Pressure [Right Arm] 94/40 L 103/53 L 97/56 L Blood Pressure Mean [Right Arm] 58 69 69 Blood Pressure Source [Right Arm] Automatic Cuff Automatic Cuff Automatic Cuff Blood Pressure Position [Right Arm] Supine Supine Supine 02 Sat by Pulse Oximetry 87 L 87 L 87 L Oxygen Delivery Method Nasal Cannula Nasal Cannula Nasal Cannula Oxygen Flow Rate (LPM) 4 4 4 08/03/20 03:15 08/03/20 03:30 08/03/20 03:45 Temperature Temperature Source Pulse Rate [Apical] 90 93
[2020-08-02 22:43] LABS: Blood Urea Nitrogen 150 mg/dl (9-20)
[2020-08-02 22:49] LABS: Procalcitonin 12.2 ng/mL (0.0-2.0)
[2020-08-02 22:50] LABS: Coronavirus 19 IgG Antibody Positive (Negative); Coronavirus 19 IgM Antibody Positive (Negative)
[2020-08-02 22:54] LABS: Hypochromasia 1+; Lymphocytes % 10 % (10-50); Macrocytosis 2+; Monocytes % 2 % (2-9); Neutrophils % 77 % (42-76); Platelet Estimate Normal; Rouleaux 1+; Total Cells Counted 100
[2020-08-02 23:00] VITALS: BP 96/54; PULSE 92; RESP 17; O2SAT 94
[2020-08-02 23:02] LABS: NT Pro Brain Natriuretic Pep. 2180 pg/mL (0-125)
--- NOTE | 2020-08-02 23:36 | ECG_ITS ---
APPROVED REPORT Exam: Resting ECG HR:92 bpm ECG Measurements Heart Rate 92 AXES TX 202 P 49 QRSd 98 QRS 24 QT 362 T -19 QTc 447 Conclusion Normal sinus rhythm Old anteroseptal changes Abnormal ECG Electronically signed by : Jason Perez, 08/03/2020 07:18:25
[2020-08-02 23:45] VITALS: TEMP 36.6
[2020-08-02 23:45] LABS: Appearance,Urine CLEAR (Clear); Blood, Urine TRACE-I (Negative); Color,Urine DK YELLOW (Yellow); Glucose,Urine (UA) Negative (Negative); Ketones,Urine Negative (Negative); Leukocyte Esterase,Urine Negative (Negative); Nitrate,Urine POSITIVE (Negative); Protein,Urine 1+ (Negative); Specific Gravity, Urine >= 1.030 (1.005-1.030); Urobilinogen,Urine 0.2 EU/dl (0.2)
[2020-08-02 23:47] LABS: Bilirubin,Urine Negative (Negative)
[2020-08-03] VITALS (35 sets, daily range): BP systolic 79–147; BP diastolic 37–97; PULSE 59–122; RESP 10–24; TEMP 36.2–37.1; O2SAT 87–98; BMI 29.5
--- NOTE | 2020-08-03 00:01 | CT_ITS ---
PROCEDURE: CT ABDOMEN PELVIS WO CON CLINICAL INDICATION: Rule out blockage Rule out blockage patient has esophageal cancer currently undergoing chemotherapy and radiation therapy COMPARISON: No exams were available for comparison TECHNIQUE: Axial images obtained with sagittal and coronal reformats. All CT scans at the facility use one or more dose reduction, viz: automated exposure control, ma/kV adjustment per patient size (including targeted exams where dose is matched to indication, i.e. head), or iterative reconstruction technique. FINDINGS: Lower thorax: Coarse bilateral basilar infiltrates and/or atelectasis are noted. There is no pleural fluid. ABDOMEN: Liver: No masses or biliary dilatation. Gallbladder: Nondistended. No radio opaque stones. Pancreas: No masses or peripancreatic fluid collections. Spleen: unremarkable Adrenals: unremarkable Kidneys/ureters: The kidneys are normal in size and show mild lobulation of the cortex bilaterally. There is a tiny cystic lesion lower pole left kidney. There are no calculi and there is no obstructive uropathy of either kidney. ABDOMEN & PELVIS: Stomach bowel: There is a small amount of fluid within the stomach which otherwise appears normal. The duodenal sweep and small bowel appear normal. The cecum is mildly dilated and is position in the right mid upper abdomen probably representing a so-called mobile cecum. There is moderate gaseous dilatation of the transverse colon and proximal descending colon. There is mild diverticulosis of the sigmoid colon but there is no evidence of diverticulitis. The appendix is normal in caliber and partially air-filled. Peritoneum: No abnormal fluid collections. No obvious inflammatory changes. No free air. Lymph nodes: No enlarged lymph nodes apparent. Vasculature: There is diffuse arthrosclerotic calcification of the abdominal aorta and proximal common iliac arteries. There is mild aneurysmal dilatation of the infrarenal aorta measuring 3 point 0 cm in diameter. Bones: There prominent multilevel degenerate changes of the lower thoracic and upper lumbar spine with prominent anterior osteophytic spurring with fusion of many of the anterior osteophytes. PELVIS: Reproductive: unremarkable Bladder: The urinary bladder is decompressed with a [place] catheter seen within the bladder. A small amount of air seen within the urinary bladder. The prostate is normal in size. Appendix: Normal . IMPRESSION: Mild gaseous dilatation of the ascending and transverse colon and proximal descending colon likely reflecting mild ileus, there is no evidence of mechanical bowel obstruction. There is borderline aneurysmal dilatation of the infrarenal aorta Dictated by: Dr. Bienvenido Russell MD 08/03/2020 08:00 Dr. Bienvenido Russell MD in 08/03/2020 08:00
--- NOTE | 2020-08-03 00:01 | CT_ITS ---
PROCEDURE: CT CHEST WO CON CLINICAL INDICATION: positive igm patient has esophageal cancer and currently is on radiation therapy and chemotherapy COMPARISON: CT CT CHEST WO CON from 05/20/2020 TECHNIQUE: Axial images obtained with sagittal and coronal reformats. All CT scans at the facility use one or more dose reduction, viz: automated exposure control, ma/kV adjustment per patient size (including targeted exams where dose is matched to indication, i.e. head), or iterative reconstruction technique. FINDINGS: HEART AND MEDIASTINAL STRUCTURES: There is moderate cardiomegaly with left ventricular prominence. Mild aortic tortuosity. Coronary artery calcifications are noted. LUNGS AND PLEURAL SPACES: The upper and mid lung escalante are clear, there are mild centrilobular emphysematous changes in the upper lobes. There are patchy coarse pneumonic infiltrates in both lower lobes primarily posterior basilar segments more prominent right side than left. These infiltrates could possibly represent post radiation pneumonitis, I am not aware of the dates for the current radiation treatment. BONY STRUCTURES: There multilevel degenerate changes mid lower thoracic spine. No obvious lytic or blastic lesions are seen. UPPER ABDOMEN: Unremarkable. ADDITIONAL FINDINGS: There is no significant or abnormal wall thickening of the esophagus.. IMPRESSION: Bilateral lower lobe pneumonic infiltrates primarily posterior basilar segments and suggest clinical correlation for whether this area of the chest is in the portal for the radiation therapy Dictated by: Dr. Bienvenido Russell MD 08/03/2020 07:44 Dr. Bienvenido Russell MD in [place] 08/03/2020 07:44
--- NOTE | 2020-08-03 00:53 | PC.NURSE ---
Sepsis bolus ordered and signed , fluids were given per previous charting
--- NOTE | 2020-08-03 01:08 | PC.NURSE ---
Pt is responding slowly to Fluid bolus, Dr Roa does not want to start a vasopressor at this time
--- NOTE | 2020-08-03 01:39 | PC.NURSE ---
Pt has received total of 4L NS fluid bolus
[2020-08-03 01:41] LABS: Carbon Dioxide 17 mmol/L (22.0-30.0); Chloride 109 mmol/L (98-107); Creatinine Clearance Estimated 13 mL/min (50-200); Estimated Glomerular Filt Rate 5 ml/min (>60); GFR (African American) 6 ML/MIN (>60); Glucose 135 mg/dl (74-100); Sodium 145 mmol/L (136-145)
[2020-08-03 01:49] LABS: Blood Urea Nitrogen 140 mg/dl (9-20)
[2020-08-03 01:51] LABS: Calcium 8.6 mg/dl (8.4-10.2)
[2020-08-03 01:55] LABS: ABG Base Excess -15.2 mmol/L (-2.4-2.3); ABG HCO3 13.7 mmhg (22.0-26.0); ABG Oxygen Saturation 95 % (90-100); ABG PCO2 40.1 mmhg (35.0-45.0); ABG TCO2 14.9 mmhg (23-27)
[2020-08-03 01:56] LABS: ABG PH 7.15 mmol/L (7.35-7.45); Oxygen 6 %
--- NOTE | 2020-08-03 02:27 | PC.NURSE ---
called [facility] and was advised they have no beds available.
--- NOTE | 2020-08-03 03:09 | PC.NURSE ---
Dr Roa speaking with [facility] for pt transfer.
--- NOTE | 2020-08-03 03:17 | PC.NURSE ---
[facility] has no beds available. has placed pt onto a waiting list.
--- NOTE | 2020-08-03 03:20 | PC.NURSE ---
C[facility]pin is speaking with [employer] at this time.
--- NOTE | 2020-08-03 04:03 | PC.NURSE ---
Addendum entered by Roni Lee RN 08/03/20 06:31: pt is A&Ox3 Addendum entered by Roni Lee RN 08/03/20 04:14: Call light is within reach Original Note: Daughter Negar left phone number to call for updates [phone] Password is Socks Pt is sitting up in bed at this time. 4LNC in place. Pt suctioned as needed d/t saliva production. Pt has no complaints reported to staff. Edilma is patent w/ dark yellow urine present.
--- NOTE | 2020-08-03 05:00 | PC.NURSE ---
Pt turned to right side. Oral care provided d/t secretions. Pt has no complaints reported to staff at this time. Call light in reach. 4LNC remains. Edilma patent.
--- NOTE | 2020-08-03 05:27 | PC.NURSE ---
Decreased 02 to 3LNC at this time
[2020-08-03 05:57] LABS: ABG Base Excess -11.3 mmol/L (-2.4-2.3); ABG HCO3 16.2 mmhg (22.0-26.0); ABG Oxygen Saturation 93 % (90-100); ABG PCO2 39.5 mmhg (35.0-45.0); ABG PH 7.23 mmol/L (7.35-7.45); ABG PO2 70.6 mmhg (80-100); ABG TCO2 17.4 mmhg (23-27)
[2020-08-03 06:03] LABS: Oxygen 3 LPM %
--- NOTE | 2020-08-03 06:05 | PC.NURSE ---
Critical ABG results given to Abilio in the ER.
[2020-08-03 06:06] LABS: Basophils % 0.1 % (0.1-2.0); Eosinophils % 0.2 % (0.1-12.0); Hematocrit 37.3 % (42.0-52.0); Lymphocytes # 0.2 K/mm3 (0.7-4.5); Lymphocytes % 2.1 % (10-50); Mean Corpuscular HGB Conc 32.3 g/dL (31.8-35.4); Mean Corpuscular Hemoglobin 32.8 pg (27.0-31.2); Mean Corpuscular Volume 101.7 fl (80-94); Mean Platelet Volume 9.8 fl (7.4-10.4); Monocytes # 0.2 K/mm3 (0.1-1.0); Monocytes % 2.7 % (1.7-9.3); Neutrophils # 7.3 K/mm3 (1.8-7.8); Neutrophils % 94.9 % (37.0-80.0); Platelet Count 122 K/mm3 (142-424); Red Blood Count 3.67 M/mm3 (4.60-6.20); Red Cell Distribution Width 14.4 % (11.5-17.5); White Blood Count 7.7 K/mm3 (4.8-10.8)
[2020-08-03 06:12] LABS: Chloride 113 mmol/L (98-107)
[2020-08-03 06:13] LABS: Potassium 4.5 mmoL/L (3.5-5.1); Sodium 147 mmol/L (136-145)
[2020-08-03 06:15] LABS: Creatinine Clearance Estimated 16 mL/min (50-200); Estimated Glomerular Filt Rate 7 ml/min (>60); GFR (African American) 8 ML/MIN (>60)
[2020-08-03 06:16] LABS: Anion Gap 18.5 mEq/L (5-15); Calcium 8.3 mg/dl (8.4-10.2); Carbon Dioxide 20 mmol/L (22.0-30.0); Glucose 140 mg/dl (74-100); Magnesium 2.1 mg/dl (1.6-2.3)
--- NOTE | 2020-08-03 06:22 | PC.NURSE ---
No changes with pt. Pt reports no complaints to staff. Labs drawn by staff.
[2020-08-03 06:49] LABS: Blood Urea Nitrogen 135 mg/dl (9-20)
--- NOTE | 2020-08-03 07:30 | PC.NURSE ---
output 900cc urine
--- NOTE | 2020-08-03 08:30 | PC.NURSE ---
PT RESTING OFFERS NO C/O AT THIS TIME
--- NOTE | 2020-08-03 09:16 | PC.NURSE ---
javon mcrae EMBRYOLOGY PROFESSOR at bedside
--- NOTE | 2020-08-03 09:35 | HMH.HP ---
*Admission Date: 08/03/20 <Kaley Martinez - 08/03/20 12:51> *Chief complaint: shortness of breath <Kaley Martinez - 08/03/20 09:40> *History of present illness: Mr. 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 Patient is a poor historian at this point. He states he feels like he came to the emergency room due to shortness of breath. Information obtained from the ER records as follows: Medical Decision Narrative: acute renal failure with septic shock and covid-19 requirinf fluid resusitation Altered Mental Status HPI - General Chief Complaint: Altered Mental Status Stated Complaint: AMS Time Seen by Provider: 08/02/20 22:15 Mode of Arrival: EMS Source of Information: Patient, Relative, Medical Record Limitations: Altered Mental Status Description of Symptoms (Recalled from ER Triage Doc. by RN): EMS reports family has c/o ams and decreased PO intake. Pt is alert to name and . - History of Present Illness HPI narrative: pt from home on chemo and rad for stage 1vA squamous cell ca lt tonsil - has dec po intake and more confused was noted to have elevated bun/cr 07/27/20 - pt with dec po intake - also has compliacted covid status with positive nasal swabs since june - no fever or vomiting MD complaint: confusion Onset (ago): day(s) Timing confirmed by: family member Severity: moderate Consistency of symptoms: waxing and waning Associated symptoms: denies other symptoms On admission laboratory data revealed white blood cell count of 9100 with hemoglobin of 13.4 and hematocrit of 42.5. Blood chemistries revealed normal sodium at 142 with a potassium of 4.8 BUN was 150. Creatinine 11.7. With repeat labs this morning sodium 147, potassium 4.5, BUN 135 and creatinine of 8. ABGs on admission to the emergency room showed a pH of 7.19 with a PCO2 of 38.8 PO2 of 71.7 and a bicarb of 14.5. Repeat ABGs this morning revealed pH of 7.23 PCO2 39.5 PO2 of 70.6 and a bicarb of 16.2. Covid IgG and IgM are positive. Covid PCR swab nasal swab was also positive. CT of the chest showed bilateral lower lobe pneumonic infitrates primarily posterior basilar segments. CT of the abdomen and pelvis revealed mild gaseous dilatation of the ascending and transverse colon and proximal descending colon likely reflecting mild ileus. Patient received several liters of IV fluids for resuscitation as well as bicarb for his metabolic acidosis. No beds were available in the tertiary facilities and he was to be admitted to [facility] for further treatment. <Kaley Martinez 08/03/20 13:23> [facility] History Medical History: Reports:: Arrhythmia, Atrial Fibrillation, Cancer, Coronary Artery Disease, Cerebrovascular Accident, Hyperlipidemia, Hypertension Denies:: Diabetes Mellitus Type 1, Diabetes Mellitus Type 2, Internal Pacemaker, MRSA, Seizures <Kaley Martinez 08/03/20 09:40> *Have you ever received a pneumonia vaccine?: No <Kaley Martinez 08/03/20 09:40> *Have you received a flu vaccine this season?: No <Kaley Martinez 08/03/20 09:40> Other Medical History: Reports: Chemotherapy, Hypothyroidism, Radiation Therapy, Thyroid Disease, Other <Kaley Martinez 08/03/20 09:40> Laterality Cases: Bilateral: Arthroscopy Knee <Priyanka Martinezhy 08/03/20 09:40> Other Surgeries: Yes: Cardiac Catheterization, Colonoscopy, Other. No: Pacemaker <Priyanka Martinezhy 08/03/20 09:40> Amputation: No <Priyanka Martinezhy 08/03/20 09:40> Fractures: No <Priyanka Martinezhy 08/03/20 09:40> - *Social History Smoking Status: Former smoker <Kaley Martinez 08/03/20 09:40> Alcohol Intake: never <Kaley Martinez 08/03/20 09:40> Alcohol Intake Frequency:: 3 or more drinks per day <Kaley Martinez 08/03/20 09:40> Substance Use Type: de
--- NOTE | 2020-08-03 10:30 | PC.NURSE ---
[facility] called and requested patient update. Updated on pt's condition.
--- NOTE | 2020-08-03 11:20 | PC.NURSE ---
PT UPDATED ON PLAN OF CARE
--- NOTE | 2020-08-03 11:57 | PC.NURSE ---
REPORT TO ELISA GHOSH
--- NOTE | 2020-08-03 12:19 | HMH.PHAINT ---
MEDICATION RECONCILIATION COMPLETED ON PATIENT USING EXTERNAL FILL HISTORY FROM PHARMACY. -CELESTE COLEMAN, ONEYDAD
--- NOTE | 2020-08-03 12:21 | HMH.PHAVTE ---
[facility] Pharmacy VTE Monitoring - Patient Demographics Admission date: 08/02/20 Report Date: 08/03/20 Time: 12:21 Allergies/Adverse Reactions: Patient Allergies No Known Allergies Allergy (Verified 07/28/20 11:42) Height: 1.8 m Weight: 95.85 kg Patient Problems: Current Active Problems Acute renal failure (ARF) (Acute) Severe sepsis with acute organ dysfunction (Acute) Septic shock (Acute) COVID-19 virus detected (Acute) Obesity (BMI 30-39.9) (Acute) Squamous cell carcinoma (Acute) Metabolic acidosis (Acute) - VTE Risk Labs: VTE Related Lab Results Hgb 12.0 g/dL (14.1-18.0) L D 08/03/20 05:46 Hct 37.3 % (42.0-52.0) L 08/03/20 05:46 Plt Count 122 K/mm3 (142-424) L D 08/03/20 05:46 BUN 135 mg/dl (9-20) H* 08/03/20 05:46 Creatinine 8.00 mg/dl (0.66-1.25) H 08/03/20 05:46 Estimated Creat Clear 16 mL/min (50-200) 08/03/20 05:46 - Prophylaxis VTE Prophylaxis Ordered?: Yes Types of VTE Prophylaxis: TEDS Knee High Location of Applied Device: Bilateral Lower Extremeties
--- NOTE | 2020-08-03 13:00 | PC.NURSE ---
Suctioned Pt mouth multiple times for thick, yellow sputum, large amount. Pt was able to cough when asked but was not able to clear his throat, he seemed to not understand what was being asked of him.
[2020-08-03 14:28] LABS: Thyroid Stimulating Hormone 0.09 uIU/mL (0.465-4.68)
[2020-08-03 17:36] LABS: POC Glucose,Bedside 146 (70-110)
--- NOTE | 2020-08-03 19:38 | PC.NURSE ---
A&O TO NAME, BIRTHDAY, AND YEAR. PT IS VERY CONFUSED AT TIMES. PT STARTED OUT ON 4L AND IS CURRENTLY ON RA TOLERATING WELL. RESPIRATIONS REGULAR AND UNLABORED. INSPIRATORY AND EXPIRATORY RHONCHI NOTED. OCCASIONAL PRODUCTIVE COUGH NOTED. PT IS UNABLE TO COUGH IT UP SO; PT HAS BEEN SUCTIONED SEVERAL TIMES. PT HAS TOLERATED WELL. ACTIVE BOWEL SOUNDS HEARD IN ALL 4 QUADRANTS. SOFT AND NONTENDER ABDOMEN. PT HAD 1 LIQUID BM THIS SHIFT. HAND PERSON INVESTIGATOR EQUAL. +2 PULSES NOTED THROUGHOUT. NO EDEMA NOTED. NO PAIN REPORTED. PT PULLED ONE IV OUT THIS SHIFT. PT RECEIVED ROCEPHIN AND AZITHROMYCIN THIS SHIFT AND TOLERATED WELL. VIZCAINO CATHETER INTACT W YELLOW URINE NOTED. NO KINKS NOTED. NS INFUSING AT 250ML/HR. BED ALARM ON TO PROMOTE SAFETY. PT HAS REMAINED IN CONTACT AND [employer] THROUGHOUT SHIFT. PT IS CURRENTLY SITTING IN THE CHAIR WITH PULL ALARM ON. BED IN LOWEST POSITION. CALL LIGHT WITHIN REACH. VSS. WILL CONTINUE TO MONITOR.
[2020-08-03 21:40] LABS: POC Glucose,Bedside 162 (70-110)
[2020-08-04] VITALS: BP 129/60; PULSE 77; RESP 22; TEMP 36.2; O2SAT 94
[2020-08-04 00:40] VITALS: PULSE 74; PULSE 77
[2020-08-04 04:00] VITALS: BP 118/72; PULSE 104; RESP 22; TEMP 36.4; O2SAT 95
[2020-08-04 05:10] VITALS: BMI 29.5
[2020-08-04 05:54] LABS: POC Glucose,Bedside 137 (70-110)
[2020-08-04 06:59] LABS: Chloride 120 mmol/L (98-107); Potassium 3.8 mmoL/L (3.5-5.1)
[2020-08-04 07:02] LABS: Anion Gap 13.8 mEq/L (5-15); Calcium 8.9 mg/dl (8.4-10.2); Carbon Dioxide 25 mmol/L (22.0-30.0); Creatinine Clearance Estimated 37 mL/min (50-200); Estimated Glomerular Filt Rate 25 ml/min (>60); GFR (African American) 30 ML/MIN (>60); Glucose 135 mg/dl (74-100); Phosphorous 4.4 mg/dl (2.5-4.5)
[2020-08-04 07:03] LABS: Magnesium 2.1 mg/dl (1.6-2.3)
[2020-08-04 07:23] LABS: ABG Base Excess -5.8 mmol/L (-2.4-2.3); ABG HCO3 19.5 mmhg (22.0-26.0); ABG Oxygen Saturation 94 % (90-100); ABG PCO2 34.6 mmhg (35.0-45.0); ABG PH 7.37 mmol/L (7.35-7.45); ABG PO2 72.9 mmhg (80-100); ABG TCO2 20.6 mmhg (23-27)
[2020-08-04 07:27] LABS: Basophils % 0.1 % (0.1-2.0); Hematocrit 37.3 % (42.0-52.0); Hemoglobin 12.4 g/dL (14.1-18.0); Lymphocytes # 0.6 K/mm3 (0.7-4.5); Mean Corpuscular HGB Conc 33.2 g/dL (31.8-35.4); Mean Corpuscular Hemoglobin 32.7 pg (27.0-31.2); Mean Corpuscular Volume 98.6 fl (80-94); Mean Platelet Volume 9.6 fl (7.4-10.4); Monocytes # 0.4 K/mm3 (0.1-1.0); Monocytes % 7.3 % (1.7-9.3); Neutrophils # 4.7 K/mm3 (1.8-7.8); Neutrophils % 82.5 % (37.0-80.0); Platelet Count 99 K/mm3 (142-424); Red Blood Count 3.79 M/mm3 (4.60-6.20); Red Cell Distribution Width 14.9 % (11.5-17.5); White Blood Count 5.7 K/mm3 (4.8-10.8)
[2020-08-04 07:49] VITALS: BP 149/71; PULSE 106; RESP 20; TEMP 36.7; O2SAT 96
[2020-08-04 07:49] LABS: Allen's Test ACCEPTABLE; Oxygen ROOM AIR %; Source L RADIAL
[2020-08-04 07:50] LABS: Blood Urea Nitrogen 114 mg/dl (9-20); Sodium 155 mmol/L (136-145)
--- NOTE | 2020-08-04 07:52 | PC.NURSE ---
Corazon Martinez notified of critical lab results
--- NOTE | 2020-08-04 08:10 | PC.NURSE ---
Pt has remained confused t/o night. Alert to self. Pt is anxious. Moderate tremors observed to BUE. Pt states that he drinks around 4 beers a day. Pt was asked if he thinks he is having DT's. Pt declined. Pt has been sinus tach and tachypneic this shift. He has expiratory rhonchi to lung escalante. Remains on RA. F/C draining to bedside with cloudy, yellow urine. 1650 total urine output. No other concerns. Will continue to monitor.
--- NOTE | 2020-08-04 08:23 | PC.NURSE ---
attempted AM assessment. Pt refuses to let me touch him, attempts to pull IV out, and is yelling that he is going home. He will not answer my questions so I'm unsure if he's oriented. He seems anxious and demands that I take out IV. I put pump on standby.
--- NOTE | 2020-08-04 09:12 | HMH.ACPN2 ---
Internal Medicine - PN: Subj *Date: 08/04/20 *Time: 09:12 Interval history: Patient states he wants to go home. Exam Vital signs and Labs for Last 24 Hours: Temp Pulse Resp BP Pulse Ox 98.0 F 106 H 20 149/71 H 96 08/04/20 07:49 08/04/20 07:49 08/04/20 07:49 08/04/20 07:49 08/04/20 07:49 Laboratory Results - last 24 hr 08/03/20 13:38: TSH 0.09 L 08/03/20 17:13: POC Glucose 146 H 08/03/20 21:18: POC Glucose 162 H 08/04/20 05:42: POC Glucose 137 H 08/04/20 06:00: Specimen Source L radial, O2 % Room air, ABG pH 7.37, ABG pCO2 34.6 L, ABG pO2 72.9 L, ABG HCO3 19.5 L, ABG Total CO2 20.6 L, ABG O2 Saturation 94, ABG Base Excess -5.8 L, Lokesh Test Acceptable 08/04/20 06:02: WBC 5.7 D, RBC 3.79 L, Hgb 12.4 L, Hct 37.3 L, MCV 98.6 H, MCH 32.7 H, MCHC 33.2, RDW 14.9, Plt Count 99 L, MPV 9.6, Neut % (Auto) 82.5 H, Lymph % (Auto) 10.0, Blair % (Auto) 7.3, Eos % (Auto) 0.0 L, Baso % (Auto) 0.1, Neut # (Auto) 4.7, Lymph # (Auto) 0.6 L, Blair # (Auto) 0.4, Eos # (Auto) 0.0, Baso # (Auto) 0.0 08/04/20 06:02: Sodium 155 H*, Potassium 3.8, Chloride 120 H, Carbon Dioxide 25 D, Anion Gap 13.8, BUN 114 H*, Creatinine 2.60 H D, Estimated Creat Clear 37, Estimated GFR 25 L, Est GFR ( Amer) 30 L D, Glucose 135 H, Calcium 8.9, Magnesium 2.1 08/04/20 06:02: Phosphorus 4.4 Vital Signs - 24 hr 08/03/20 09:45 08/03/20 10:00 08/03/20 10:30 Temperature Pulse Rate Pulse Rate [Apical] 98 H 95 H 96 H Respiratory Rate 15 13 16 Blood Pressure Blood Pressure [Right Arm] 111/51 L 120/68 113/97 H 02 Sat by Pulse Oximetry 89 L 89 L 89 L 08/03/20 10:45 08/03/20 11:30 08/03/20 12:12 Temperature 98.1 F Pulse Rate Pulse Rate [Apical] 59 L 95 H 76 Respiratory Rate 20 22 20 Blood Pressure Blood Pressure [Right Arm] 119/79 124/73 114/67 02 Sat by Pulse Oximetry 88 L 89 L 88 L 08/03/20 12:55 08/03/20 13:00 08/03/20 13:30 Temperature 98 F Pulse Rate 92 H 100 H Pulse Rate [Apical] Respiratory Rate 22 Blood Pressure 115/65 Blood Pressure [Right Arm] 02 Sat by Pulse Oximetry 96 96 08/03/20 16:00 08/03/20 17:20 08/03/20 20:00 Temperature 97.1 F L 98.8 F Pulse Rate 70 Pulse Rate [Apical] 86 122 H Respiratory Rate 18 24 Blood Pressure Blood Pressure [Right Arm] 147/90 H 124/67 02 Sat by Pulse Oximetry 93 L 94 L 95 08/04/20 00:00 08/04/20 00:40 08/04/20 04:00 Temperature 97.1 F L 97.6 F Pulse Rate 77 Pulse Rate [Apical] 77 104 H Respiratory Rate 22 22 Blood Pressure Blood Pressure [Right Arm] 129/60 118/72 02 Sat by Pulse Oximetry 94 L 95 08/04/20 07:49 Temperature 98.0 F Pulse Rate Pulse Rate [Apical] 106 H Respiratory Rate 20 Blood Pressure Blood Pressure [Right Arm] 149/71 H 02 Sat by Pulse Oximetry 96 I & O for Last 24 hours: Intake & Output 08/01/20 08/02/20 08/03/20 08/04/20 23:59 23:59 23:59 23:59 Intake Total 948 / 948 2908 / 2908 Output Total 1500 / 2500 1650 / 1650 Balance -552 / -1552 1258 / 1258 Weight 280 lb 211 lb 5 oz 211 lb 5.009 oz Microbiology Reports for the Last 24 Hours: Microbiology 08/02/20 22:15 Urine,Catheterized Urine Culture - Preliminary NO GROWTH AFTER 24 HOURS - Constitutional no acute distress - *Routine HEENT Exam Head: Present: normocephalic Eye: Present: EOMI, PERRL ENT: Present: mucous membranes moist - *Routine Neck Exam Present: supple. Absent: lymphadenopathy - *Routine Respiratory Exam Present: rhonchi (bilateral) - *Routine Cardiovascular Exam Present: RRR - *Routine Abdominal Exam Present: soft, normoactive bowel sounds. Absent: tenderness - *Routine Extremities Exam Absent: cyanosis, clubbing, edema - *Routine Skin Exam Present: warm. Absent: rash - *Routine Neurological Exam Present: alert (seems little more confused today, less cooperative with nurses) Assessment and Plan (1) Pneumonia Status: Acute Category: Medical Co
--- NOTE | 2020-08-04 12:01 | PC.NURSE ---
pt resistive to all care this morning. Would not let me completed assessment. He is confused. Thinks he is at the hospital in [place]. He pulled out PIV in front of Dr. Moore during his morning rounds. Pt is adamant that he go home. Daughter was contacted by Dr. Moore. Daughter wishes for pt to remain in the hospital. When pt was told this, he became verbally aggressive towards staff, making threats. He has called the chainstitch felled seam operator and roughing mill operator office stating that he is being held against his will. Called Dr. Moore back, who then called daughter again. Daughter reports that she will come pick him up when discharge order in. Dr. Moore entered discharge order.
--- NOTE | 2020-08-04 13:29 | HMH.DCSUM ---
General - General Admission date:: 08/03/20 Discharge date: 08/04/20 HPI HPI: Mr. 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 Patient is a poor historian at this point. He states he feels like he came to the emergency room due to shortness of breath. Information obtained from the ER records as follows: Pt from home on chemo and rad for stage 1vA squamous cell ca lt tonsil - has dec po intake and more confused was noted to have elevated bun/cr 07/27/20 - pt with dec po intake - also has compliacted covid status with positive nasal swabs since june - no fever or vomiting On admission laboratory data revealed white blood cell count of 9100 with hemoglobin of 13.4 and hematocrit of 42.5. Blood chemistries revealed normal sodium at 142 with a potassium of 4.8 BUN was 150. Creatinine 11.7. With repeat labs this morning sodium 147, potassium 4.5, BUN 135 and creatinine of 8. ABGs on admission to the emergency room showed a pH of 7.19 with a PCO2 of 38.8 PO2 of 71.7 and a bicarb of 14.5. Repeat ABGs this morning revealed pH of 7.23 PCO2 39.5 PO2 of 70.6 and a bicarb of 16.2. Covid IgG and IgM are positive. Covid PCR swab nasal swab was also positive. CT of the chest showed bilateral lower lobe pneumonic infitrates primarily posterior basilar segments. CT of the abdomen and pelvis revealed mild gaseous dilatation of the ascending and transverse colon and proximal descending colon likely reflecting mild ileus. Patient received several liters of IV fluids for resuscitation as well as bicarb for his metabolic acidosis. No beds were available in the tertiary facilities and he was to be admitted to [facility] for further treatment. Hospital Course Hospital Course: Patient was admitted and started on Invanz, duo nebs, and IV fluids. Aggressive pulmonary hygiene to include suctioning as needed was ordered as well. By 08/04/2020, the patient stated he wanted to go home. His family was contacted. Dr. Moore spoke with his daughter and she felt comfortable caring for the patient at home. The patient refused any further care at [facility], therefore he was discharged on Zithromax and cefdinir. His daughter will call with any new concerns. Objective Vital signs: Temp Pulse Resp BP Pulse Ox 98.0 F 106 H 20 149/71 H 96 08/04/20 07:49 08/04/20 07:49 08/04/20 07:49 08/04/20 07:49 08/04/20 07:49 Narrative: - Constitutional mild distress - *Routine HEENT Exam Head: Present: normocephalic, atraumatic Eye: Present: PERRL ENT: Present: mucous membranes dry Comments: Thick secretions in mouth and OP area;Patient with cough and able to expectorate some of secretions. - *Routine Neck Exam Present: supple, full ROM. Absent: lymphadenopathy, thyromegaly - *Routine Respiratory Exam Present: rhonchi (Bilateral coarse) - *Routine Cardiovascular Exam Present: RRR - *Routine Abdominal Exam Present: soft, normoactive bowel sounds, obese. Absent: tenderness - *Routine Extremities Exam Present: edema (Bilateral). Absent: calf tenderness - *Routine Neurological Exam Present: alert (With verbal stimulation and then falls back asleep.), moving all extremities. Absent: hearing grossly intact Results Labs on day of discharge: Labs from last 24 hours 08/04/20 08/04/20 08/04/20 06:02 06:02 06:02 WBC 5.7 D RBC 3.79 L Hgb 12.4 L Hct 37.3 L MCV 98.6 H MCH 32.7 H MCHC 33.2 RDW 14.9 Plt Count 99 L MPV 9.6 Neut % (Auto) 82.5 H Lymph % (Auto) 10.0 Tripp % (Auto) 7.3 Eos % (Auto) 0.0 L Baso % (Auto) 0.1 Neut # (Auto) 4.7 Lymph # (Auto) 0.6 L Tripp # (A
[2020-09-08 12:58] LABS: POC Glucose,Bedside 102 (70-110)
== END 2020-08-04 12:07 | disposition home or self-care (01) | DRG 177 ==
LOC: ER 22:17 → 2ND 08-03 03:47
PROVIDERS: Nurse Practitioner Family; Admitting Provider Family Medicine; Emergency Provider Emergency Medicine; PCP Family Medicine; Visit Provider Family Medicine
DX: U07.1 COVID-19 (principal); J12.89 Other viral pneumonia; R65.21 Severe sepsis with septic shock; N17.9 Acute kidney failure, unspecified; C79.89 Secondary malignant neoplasm of other specified sites; E87.2 Acidosis; I10 Essential (primary) hypertension; E03.9 Hypothyroidism, unspecified; C09.9 Malignant neoplasm of tonsil, unspecified; Z79.899 Other long term (current) drug therapy
CPT/HCPCS: 36415; 71045; 71250; 74176; 80048; 80053; 81001; 82140; 82803; 82962; 83605; 83735; 83880; 84100; 84145; 84443; 85007; 85025; 86328; 87040; 87086; 93005; 94640; 96365; 96367; 96375; 99285; J0456; J1335; J2405; U0003

== ENCOUNTER 2020-08-20 09:53 | Outpatient (CLI) | payer BC, SELFPAY ==
[2020-08-20 09:54] VITALS: BMI 31.2
[2020-08-20 10:14] LABS: Basophils % 0.3 % (0.1-2.0); Eosinophils # 0.1 K/mm3 (0.0-0.4); Eosinophils % 1.3 % (0.1-12.0); Hemoglobin 10.7 g/dL (14.1-18.0); Lymphocytes # 0.7 K/mm3 (0.7-4.5); Lymphocytes % 12.3 % (10-50); Mean Corpuscular HGB Conc 32.5 g/dL (31.8-35.4); Mean Corpuscular Hemoglobin 32.6 pg (27.0-31.2); Mean Corpuscular Volume 100.1 fl (80-94); Mean Platelet Volume 10.5 fl (7.4-10.4); Monocytes # 0.3 K/mm3 (0.1-1.0); Monocytes % 4.8 % (1.7-9.3); Neutrophils # 4.4 K/mm3 (1.8-7.8); Neutrophils % 81.3 % (37.0-80.0); Platelet Count 295 K/mm3 (142-424); Red Cell Distribution Width 15.6 % (11.5-17.5); White Blood Count 5.4 K/mm3 (4.8-10.8)
[2020-08-20 10:29] LABS: Chloride 99 mmol/L (98-107); Potassium 3.4 mmoL/L (3.5-5.1); Sodium 138 mmol/L (136-145)
[2020-08-20 10:32] LABS: Alanine Aminotransferase 27 U/L (12-78); Albumin Level 3.4 g/dl (3.5-5.0); Albumin/Globulin Ratio 0.8 (1.1-1.8); Alkaline Phosphatase 145 U/L (38-126); Anion Gap 9.4 mEq/L (5-15); Aspartate Amino Transferase 45 U/L (17-59); Bilirubin,Total 0.6 mg/dl (0.2-1.3); Blood Urea Nitrogen 22 mg/dl (9-20); Calcium 8.8 mg/dl (8.4-10.2); Carbon Dioxide 33 mmol/L (22.0-30.0); Creatinine Clearance Estimated 92 mL/min (50-200); Estimated Glomerular Filt Rate 67 ml/min (>60); GFR (African American) 81 ML/MIN (>60); Globulin 4.5 g/dL (1.3-3.2); Glucose 172 mg/dl (74-100); Total Protein,Serum 7.9 g/dl (6.3-8.2)
[2020-08-20 11:58] VITALS: BP 117/56; PULSE 54; RESP 18; TEMP 36.4; O2SAT 99
[2020-08-20 12:28] VITALS: BP 114/59; PULSE 58; RESP 18; O2SAT 98
[2020-08-20 12:52] VITALS: BP 113/56; PULSE 52; RESP 18; TEMP 36.5; O2SAT 98
[2020-08-20 13:40] VITALS: BP 111/57; PULSE 57; RESP 18; O2SAT 99
== END 2020-08-20 13:45 | disposition home or self-care (01) ==
LOC: INF 09:53
PROVIDERS: Visit Provider Internal Medicine Medical Oncology
DX: C76.0 Malignant neoplasm of head, face and neck (principal)
CPT/HCPCS: 80053; 85025; 96413; J8501; J9045; Q0166

== ENCOUNTER 2020-08-27 11:40 | Outpatient (CLI) | payer BC, SELFPAY ==
[2020-08-27 11:40] VITALS: BMI 31.2
[2020-08-27 11:53] LABS: Basophils % 0.5 % (0.1-2.0); Eosinophils # 0.2 K/mm3 (0.0-0.4); Eosinophils % 2.6 % (0.1-12.0); Hematocrit 32.2 % (42.0-52.0); Hemoglobin 11.1 g/dL (14.1-18.0); Mean Corpuscular HGB Conc 34.5 g/dL (31.8-35.4); Mean Corpuscular Hemoglobin 33.5 pg (27.0-31.2); Mean Corpuscular Volume 97.1 fl (80-94); Mean Platelet Volume 9.5 fl (7.4-10.4); Monocytes # 0.4 K/mm3 (0.1-1.0); Neutrophils # 6.3 K/mm3 (1.8-7.8); Neutrophils % 78.8 % (37.0-80.0); Platelet Count 336 K/mm3 (142-424); Red Blood Count 3.31 M/mm3 (4.60-6.20)
[2020-08-27 11:58] LABS: Chloride 97 mmol/L (98-107); Potassium 4.7 mmoL/L (3.5-5.1); Sodium 132 mmol/L (136-145)
[2020-08-27 12:01] LABS: Alanine Aminotransferase 36 U/L (12-78); Albumin Level 3.7 g/dl (3.5-5.0); Albumin/Globulin Ratio 0.9 (1.1-1.8); Alkaline Phosphatase 137 U/L (38-126); Anion Gap 6.7 mEq/L (5-15); Aspartate Amino Transferase 47 U/L (17-59); Bilirubin,Total 0.6 mg/dl (0.2-1.3); Blood Urea Nitrogen 25 mg/dl (9-20); Calcium 9.4 mg/dl (8.4-10.2); Carbon Dioxide 33 mmol/L (22.0-30.0); Creatinine Clearance Estimated 102 mL/min (50-200); Estimated Glomerular Filt Rate 84 ml/min (>60); GFR (African American) 102 ML/MIN (>60); Globulin 4.1 g/dL (1.3-3.2); Glucose 130 mg/dl (74-100); Total Protein,Serum 7.8 g/dl (6.3-8.2)
[2020-08-27 12:10] VITALS: BP 127/74; PULSE 72; RESP 18; TEMP 36.4; O2SAT 98
[2020-08-27 12:38] VITALS: BP 121/64; PULSE 76; RESP 18; O2SAT 98
[2020-08-27 13:08] VITALS: BP 124/69; PULSE 78; RESP 18; O2SAT 99
[2020-08-27 13:30] VITALS: BP 142/68; PULSE 67; RESP 18; O2SAT 98
== END 2020-08-27 13:30 | disposition home or self-care (01) ==
LOC: INF 11:40
PROVIDERS: Visit Provider Internal Medicine Medical Oncology
DX: Z51.11 Encounter for antineoplastic chemotherapy (principal); C76.0 Malignant neoplasm of head, face and neck
CPT/HCPCS: 80053; 85025; 96413; J8501; J9045; Q0166

== ENCOUNTER 2020-09-03 10:16 | Outpatient (CLI) | payer BC, SELFPAY ==
[2020-09-03 10:19] VITALS: BMI 30.1
[2020-09-03 10:38] LABS: Basophils % 0.5 % (0.1-2.0); Eosinophils # 0.1 K/mm3 (0.0-0.4); Eosinophils % 1.2 % (0.1-12.0); Hematocrit 33.4 % (42.0-52.0); Hemoglobin 10.9 g/dL (14.1-18.0); Lymphocytes # 0.9 K/mm3 (0.7-4.5); Lymphocytes % 10.9 % (10-50); Mean Corpuscular HGB Conc 32.6 g/dL (31.8-35.4); Mean Corpuscular Hemoglobin 32.5 pg (27.0-31.2); Mean Corpuscular Volume 99.7 fl (80-94); Mean Platelet Volume 9.3 fl (7.4-10.4); Monocytes # 0.6 K/mm3 (0.1-1.0); Monocytes % 6.8 % (1.7-9.3); Neutrophils # 6.6 K/mm3 (1.8-7.8); Neutrophils % 80.7 % (37.0-80.0); Platelet Count 194 K/mm3 (142-424); Red Blood Count 3.36 M/mm3 (4.60-6.20); Red Cell Distribution Width 17.7 % (11.5-17.5); White Blood Count 8.2 K/mm3 (4.8-10.8)
[2020-09-03 10:43] LABS: Chloride 96 mmol/L (98-107); Potassium 4.5 mmoL/L (3.5-5.1); Sodium 132 mmol/L (136-145)
[2020-09-03 10:45] LABS: Blood Urea Nitrogen 22 mg/dl (9-20); Creatinine Clearance Estimated 98 mL/min (50-200); Estimated Glomerular Filt Rate 96 ml/min (>60); GFR (African American) 116 ML/MIN (>60)
[2020-09-03 10:46] LABS: Alanine Aminotransferase 23 U/L (12-78); Albumin Level 3.7 g/dl (3.5-5.0); Albumin/Globulin Ratio 0.9 (1.1-1.8); Alkaline Phosphatase 110 U/L (38-126); Anion Gap 8.5 mEq/L (5-15); Aspartate Amino Transferase 37 U/L (17-59); Bilirubin,Total 0.6 mg/dl (0.2-1.3); Calcium 9.2 mg/dl (8.4-10.2); Carbon Dioxide 32 mmol/L (22.0-30.0); Globulin 3.9 g/dL (1.3-3.2); Glucose 156 mg/dl (74-100); Total Protein,Serum 7.6 g/dl (6.3-8.2)
[2020-09-03 12:20] VITALS: BP 132/59; PULSE 60; RESP 18; TEMP 36
[2020-09-03 12:35] VITALS: BP 133/66; PULSE 63; RESP 18
[2020-09-03 12:50] VITALS: BP 141/64; PULSE 63; RESP 18
== END 2020-09-03 13:00 | disposition home or self-care (01) ==
LOC: INF 10:16
PROVIDERS: Visit Provider Internal Medicine Medical Oncology
DX: Z51.11 Encounter for antineoplastic chemotherapy (principal); C76.0 Malignant neoplasm of head, face and neck
CPT/HCPCS: 80053; 85025; 96413; J8501; J9045; Q0166

== ENCOUNTER 2020-10-02 12:40 | Outpatient (CLI) | payer BC, SELFPAY ==
[2020-10-02 12:43] VITALS: BMI 30.1
--- NOTE | 2020-10-02 12:46 | PC.NURSE ---
1246-pt here for lab draw and oncology appointment; collected labs then pt to oncology appointment
[2020-10-02 13:02] LABS: Chloride 101 mmol/L (98-107)
[2020-10-02 13:03] LABS: Potassium 3.8 mmoL/L (3.5-5.1); Sodium 137 mmol/L (136-145)
[2020-10-02 13:05] LABS: Alanine Aminotransferase 33 U/L (12-78); Alkaline Phosphatase 117 U/L (38-126); Aspartate Amino Transferase 39 U/L (17-59); Bilirubin,Total 0.4 mg/dl (0.2-1.3); Blood Urea Nitrogen 13 mg/dl (9-20); Creatinine Clearance Estimated 98 mL/min (50-200); Estimated Glomerular Filt Rate 96 ml/min (>60); GFR (African American) 116 ML/MIN (>60)
[2020-10-02 13:06] LABS: Albumin Level 4.3 g/dl (3.5-5.0); Albumin/Globulin Ratio 1.2 (1.1-1.8); Calcium 9.7 mg/dl (8.4-10.2); Carbon Dioxide 30 mmol/L (22.0-30.0); Globulin 3.6 g/dL (1.3-3.2); Glucose 140 mg/dl (74-100); Total Protein,Serum 7.9 g/dl (6.3-8.2)
[2020-10-02 13:07] LABS: Basophils # 0.1 K/mm3 (0-0.2); Eosinophils # 0.2 K/mm3 (0.0-0.4); Eosinophils % 3.9 % (0.1-12.0); Hematocrit 34.9 % (42.0-52.0); Hemoglobin 11.5 g/dL (14.1-18.0); Lymphocytes # 0.9 K/mm3 (0.7-4.5); Lymphocytes % 18.6 % (10-50); Mean Corpuscular HGB Conc 32.9 g/dL (31.8-35.4); Mean Corpuscular Hemoglobin 33.3 pg (27.0-31.2); Mean Corpuscular Volume 101.3 fl (80-94); Mean Platelet Volume 8.9 fl (7.4-10.4); Monocytes # 0.6 K/mm3 (0.1-1.0); Monocytes % 12.6 % (1.7-9.3); Neutrophils # 3.2 K/mm3 (1.8-7.8); Neutrophils % 63.9 % (37.0-80.0); Platelet Count 290 K/mm3 (142-424); Red Blood Count 3.45 M/mm3 (4.60-6.20); Red Cell Distribution Width 16.7 % (11.5-17.5); White Blood Count 4.9 K/mm3 (4.8-10.8)
[2020-10-02 13:51] LABS: Anion Gap 7.8 mEq/L (5-15)
== END 2020-10-02 12:48 | disposition home or self-care (01) ==
LOC: INF 12:42
PROVIDERS: Visit Provider Internal Medicine Medical Oncology
DX: R93.89 Abnormal findings on diagnostic imaging of other specified body structures (principal)
CPT/HCPCS: 80053; 85025

== ENCOUNTER → 2020-10-07 12:51 | Outpatient (CLI) | payer BC, SELFPAY ==
[2020-10-07 14:01] LABS: Blood Urea Nitrogen 13 mg/dl (9-20); Estimated Glomerular Filt Rate 96 ml/min (>60); GFR (African American) 116 ML/MIN (>60)
== END ==
PROVIDERS: Visit Provider Otolaryngology
DX: Z01.818 Encounter for other preprocedural examination (principal); C32.0 Malignant neoplasm of glottis
CPT/HCPCS: 36415; 82565; 84520

== ENCOUNTER → 2020-10-08 11:43 | Outpatient (CLI) | payer BC, SELFPAY ==
--- NOTE | 2020-10-08 11:48 | CT_ITS ---
PROCEDURE: CT SOFT TISSUE NECK WO/W CON CLINICAL HISTORY: HEAD AND NECK CANCER COMPARISON: CT CT SOFT TISSUE NECK W CON from 04/17/2020 TECHNIQUE: Oral Contrast: None IV Contrast: None Axial images obtained with sagittal and coronal reformats. All CT scans at the facility use one or more dose reduction, viz: automated exposure control, ma/kV adjustment per patient size (including targeted exams where dose is matched to indication, i.e. head), or iterative reconstruction technique. FINDINGS: Enlarged lymph node once again noted posterior to the angle of the mandible on the left. This has a complex appearance with both cystic and solid components measuring 2.1 by 2 cm previously measuring 3.2 x 2.7 cm. An additional enlarged node is present posterior to the sternocleidomastoid and lateral to the internal jugular vein measuring 11 mm previously measuring 19 mm. There was enlargement of the left fold of the vocal cords on the previous study which is not present on today's exam. The nasopharynx oropharynx and hypopharynx have an unremarkable appearance as does the epiglottis and glottic region. Centrilobular emphysematous changes are present in the lung apices. There is a rounded soft tissue density in the right ethmoid sinus measuring 10 mm nonspecific. And may be due to small mucocele. There are degenerative changes in the cervical spine with DISH of the cervical spine. IMPRESSION: Persistent but smaller enlarged cervical lymph nodes level 2 and level 3 on the left. The nodular area in the vocal fold on the left is not apparent on today's exam. No new areas of adenopathy apparent. Dictated by: Lokesh Razo MD 10/09/2020 13:53 Lokesh Razo MD in [place] 10/09/2020 13:53
== END ==
PROVIDERS: PCP Family Medicine; Visit Provider Otolaryngology
DX: C76.0 Malignant neoplasm of head, face and neck (principal)
CPT/HCPCS: 70492; Q9967

== ENCOUNTER → 2020-12-25 10:35 | Outpatient (CLI) | payer BC, SELFPAY ==
[2020-12-25 12:07] LABS: Chloride 100 mmol/L (98-107); Sodium 139 mmol/L (136-145)
[2020-12-25 12:08] LABS: Potassium 4.8 mmoL/L (3.5-5.1)
[2020-12-25 12:10] LABS: Blood Urea Nitrogen 16 mg/dl (9-20); Estimated Glomerular Filt Rate 84 ml/min (>60); GFR (African American) 102 ML/MIN (>60)
[2020-12-25 12:11] LABS: Anion Gap 12.8 mEq/L (5-15); Calcium 9.2 mg/dl (8.4-10.2); Carbon Dioxide 31 mmol/L (22.0-30.0); Glucose 88 mg/dl (74-100)
== END ==
PROVIDERS: Urology; Visit Provider Internal Medicine Cardiovascular Disease
DX: I10 Essential (primary) hypertension (principal); I25.10 Atherosclerotic heart disease of native coronary artery without angina pectoris
CPT/HCPCS: 36415; 80048

== ENCOUNTER 2021-01-26 15:00 | Outpatient (RCR) | payer BC, SELFPAY ==
--- NOTE | 2020-12-17 09:36 | HMH.PTOPWND ---
Rehab Outpt Wound Evaluation Rehab OP Wound Evaluation Start: 12/17/20 09:02 Freq: Status: Active Protocol: Document 12/17/20 09:29 ELISHA (Rec: 12/17/20 09:36 ELISHA [id number]) Electronically Signed By Av Rangel, PT 12/17/20 09:29 Subjective/History History History Pt is 70 yowm who presents with c/o neck swelling x several mos due to throat cancer originally diagnosed . He reports he did not have surgery, but underwent chemo and XRT which finished in october of this year. He reports no c/o pain or numbness/tingling, but he does have mild difficulty with swallowing thin liquids. He had PEG tube, but that has been removed ~ 1 wk ago and he is seing speech therapy in [place]. He has PMH of a-fib , CAD, CVA, HL, HTN, and B knee surgery. Subjective Subjective He reports no c/o pain and no tenderness to palpation this date. Lymphedema Eval Classification of Lymphedema Secondary Lymphedema Yes: head/neck cancer Stemmer's sign Stemmer's Sign no Stage of Lymphedema Lymphedema stages Stage I (Pitting edema, reduces w/ elevation, no fibrosis) Skin Changes Skin Folds Yes Other Changes Yes Radiation Therapy Has received radiation therapy yes Chemo Therapy Has received chemo therapy yes Affected Extremities Areas Affected by Lymphedema/Edema Head/Neck Manual Lymphatic Drainage Treatment Area MLD Treatment Area Head/Neck,Abdomen Wound Problems/Impairments Impairments Problems/Impairmments Impaired Recreational Activities,Increased Edema, Lymphedema Present,Impaired Self Care/Self Management Prognosis Rehab Potential Good Clinical Impression Consistent with Diagnosis Yes Short Term Goals Number of Weeks 4 Decrease Edema Yes Patient to Understand Lymphedema Yes Treatment and Exercises Back Tender [place] Goals Number of Weeks 8 Decrease Lymphedema Yes Patient to be Ind w/ HEP Yes Patient to be Ind w/ [place] Yes Compression Garments
--- NOTE | 2021-01-15 14:59 | HMH.RHREAS ---
Rehab Reassessment Rehab OP Re-assessment Start: 01/15/21 14:53 Freq: Status: Active Protocol: Document 01/15/21 14:53 ELISHA (Rec: 01/15/21 14:58 ELISHA [id number]) Electronically Signed By Av Rangel, PT 01/15/21 14:53 Rehab Re-assessment Subjective Subjective Pt reports no c/o pain or swallowing issues at all. Objective Objective Notes Neck edema measurements: pt neck total -6.6 cm since initial evaluation. Fibrotic edema remains around the nec, but less stiffness noted. Assessment Progress Assessment Progressing as Expected Assessment Notes Tolerating all treatment without difficulty. Less fibrotic edema is noticeable with palpation. Overall edema reducing. Pt is tolerating compression well. Patient goals met ST,2 Goals Not Met LT,2,3,4 Revised Goals none Plan Plan Continue per initial POC. Frequency of Therapy 2 x/wk Duration of therapy 8 wks. Time and Billing Re-Eval Time 15 Re-Eval Billing Units 0 PHYSICIAN CERTIFICATION: I certify the specified therapy services for Jason Marroquin are required, authorized, and reviewed every 30 days.
== END 2021-01-26 15:05 | disposition home or self-care (01) ==
LOC: PT 15:00
PROVIDERS: PCP Family Medicine; Visit Provider Internal Medicine Medical Oncology
DX: R22.1 Localized swelling, mass and lump, neck (principal); C76.0 Malignant neoplasm of head, face and neck
CPT/HCPCS: 97110; 97140; 97162; 97164; 97760

== ENCOUNTER → 2021-05-05 16:01 | Outpatient (CLI) | payer BC, SELFPAY | PROVIDERS: PCP Family Medicine; Visit Provider Nurse Practitioner Family | DX: G47.33 Obstructive sleep apnea (adult) (pediatric) (principal); R63.4 Abnormal weight loss; Z68.31 Body mass index [BMI] 31.0-31.9, adult; Z85.89 Personal history of malignant neoplasm of other organs and systems | CPT/HCPCS: G0399 ==

== ENCOUNTER → 2021-05-31 16:14 | Outpatient (CLI) | payer BC, SELFPAY | PROVIDERS: PCP Family Medicine; Visit Provider Physician Assistant | DX: I49.9 Cardiac arrhythmia, unspecified (principal) | CPT/HCPCS: 93270 ==

== ENCOUNTER 2023-08-31 13:37 | Outpatient (CLI) | payer MEDICARE, SELFPAY ==
--- NOTE | 2023-08-31 13:42 | CA_ITS ---
APPROVED REPORT EXAM: Comprehensive 2D, Doppler, and color-flow Echocardiogram Altitude Chamber Technician: Yocasta Huber RVT Ht: 5 ft 11 in Wt: 255lbs BSA: 2.34 BP: 162/83 mmHg Indications: DYSPENA,CAD,JC,ABN EKG,HTN,HLD,OBESITY TDS-LIMITED WINDOWS 2D Dimensions LA Volume 106.10 mL LA Volume Index 45.34 mL/m2 (M/F) 16-34 M-Mode Dimensions RVDd 3.09 cm (0.9-2.6) LA Diam 4.48 cm (1.9-4.0) LVDd 5.41 cm (3.5-5.7) LVDs 4.02 cm (3.5-5.7) IVSd 1.25 cm (0.6-1.1) PWd 0.58 cm (0.6-1.1) EF (Teich) 50.10% FS 25.70% EDV (Teich) 141.90 mL TAPSE 2.64 (<1.7) ESV (Teich) 70.80 mL LV Diastology E Decel Time 150 (160-240 msec) E/A Ratio 1.2 Aortic Valve TRISTAN Index 0.73 cm2/m2 AoV Peak Javi. 153.0 (50-130 cm/s) AO Peak GR. 9.30 mmHg AO Mean GR. 5.70 (<5 mmHg) AO VTI 37.9 (18-25 cm) TRISTAN (VTI) 1.74 (2.5-4.5 cm2) Mitral Valve MV E Max Javi. 93.0 (40-130 cm/s) MV A Velocity 76.0 (40-130 cm/s) E/A Ratio 1.22 MV PHT 44.0 ms Pulmonary Valve PV Peak Velocity 99.0 (50-150 cm/s) Tricuspid Valve TR P. Velocity 181.00 cm/s RAP Estimate 10.00 mmHg RVSP 23.10 mmHg Left Ventricle The left ventricle is normal size. The left ventricular systolic function is normal. The left ventricular ejection fraction is within the normal range. Proximal septal thickening is noted. There is normal LV segmental wall motion. The left ventricular diastolic function is normal. LVEF is 55%. Right Ventricle The right ventricle is mildly dilated. The right ventricular systolic function is normal. Atria The left atrium size is mildly dilated. The right atrium size is normal. There is no Doppler evidence of interatrial shunt. Aortic Valve The aortic valve is mildly thickened. There is no aortic valvular stenosis. No aortic regurgitation is present. Mitral Valve The mitral valve leaflets are mildly thickened. No evidence of mitral valve stenosis. Trace mitral regurgitation. Tricuspid Valve The tricuspid valve leaflets are thin and pliable. Mild tricuspid regurgitation. RVSP is normal. Pulmonic Valve The pulmonary valve is normal in structure. Mild pulmonic regurgitation. Great Vessels The aortic root is normal in size. The ascending aorta is mildly dilated, measuring 4.3 cm in diameter. IVC is normal in size and collapses >50% with inspiration. Pericardium There is no pericardial effusion. Other Information Study Quality: Technically Difficult Conclusion Normal biventricular systolic function. Mild RV dilation. Mild LA dilation. Mild TR, mild PI. Ascending aorta is mildly dilated, measuring 4.3 cm in diameter. Electronically signed by : Debora Parker MD 09/04/2023 11:09:45
== END 2023-08-31 23:59 ==
PROVIDERS: PCP Family Medicine; Visit Provider Nurse Practitioner Family
DX: R06.00 Dyspnea, unspecified (principal); I25.10 Atherosclerotic heart disease of native coronary artery without angina pectoris; R94.31 Abnormal electrocardiogram [ECG] [EKG]
CPT/HCPCS: 93306

== ENCOUNTER 2024-03-04 12:59 | Outpatient (CLI) | payer MEDICARE, SELFPAY ==
--- NOTE | 2024-03-04 13:03 | CT_ITS ---
FINAL REPORT TECHNIQUE: Axial imaging of the chest is obtained after the administration of contrast. 3-D MIP reformatted images were also obtained and reviewed per PE protocol. CLINICAL HISTORY: dilated ascending aorta COMPARISON: CT abdomen and pelvis 08/03/2020 FINDINGS: The pulmonary arteries are well filled. There is no evidence of pulmonary embolus. The ascending aorta measures 3.9 cm was 3.9 cm. There is no evidence of dissection. There is no mediastinal, hilar, or axillary lymphadenopathy. The heart is normal in size. There are changes of early emphysema. No suspicious nodule or mass identified. There are no areas of consolidation. There is no pleural or pericardial effusion. Limited evaluation of the upper abdomen demonstrate several borderline left periaortic lymph nodes at the level of the mid kidneys. No acute osseous abnormality. IMPRESSION: Stable 3.9 cm ascending aorta. No acute intrathoracic abnormality. Mildly prominent left para-aortic lymph nodes in the upper abdomen. Consider CT abdomen and pelvis for further evaluation. Reviewed, Interpreted and Dictated by Courtney Kang MD Transcribed by Jenny Victor Authenticated and [facility]
[2024-03-04 13:47] LABS: Blood Urea Nitrogen 10 mg/dl (9-20); Estimated Glomerular Filt Rate 83 ml/min (>60); GFR (African American) 101 ML/MIN (>60)
--- NOTE | 2024-03-04 13:56 | CA_ITS ---
APPROVED REPORT EXAM: Comprehensive 2D, Doppler, and color-flow Echocardiogram Bulk Plant Operator: Christiane Cummings RDCS Ht: 5 ft 11 in Wt: 245lbs BSA: 2.30 BP: 143/47 mmHg Indications: CAD,SOA,HLP TDS 2D Dimensions Left Atrium 5.25 cm M: 3.0 - 4.0 LVOT 2.23 cm (M/F) 1.5-2.5 M-Mode Dimensions RVDd 1.66 cm (0.9-2.6) LVDd 8.52 cm (3.5-5.7) Ao Diam 3.63 cm (2.0-3.7) LVDs 7.00 cm (3.5-5.7) IVSd 0.90 cm (0.6-1.1) PWd 0.81 cm (0.6-1.1) EF (Teich) 35.60% FS 17.80% EDV (Teich) 396.50 mL ESV (Teich) 255.40 mL LV Diastology E Decel Time 158 (160-240 msec) E/A Ratio 0.9 MED E' 6.2 (>= 7 cm/sec) E'/MED E' Ratio 13.50 (<= 14) LAT E' 6.0 (>= 10 cm/sec) E/LAT E' Ratio 13.95 (<= 14) Aortic Valve LVOT Max 73.0 (70-110 cm/s) TRISTAN Index 0.87 cm2/m2 LVOT VTI 16.97 cm AoV Peak Javi. 151.0 (50-130 cm/s) AO Mean GR. 4.60 (<5 mmHg) AO VTI 33.0 (18-25 cm) TRISTAN (VTI) 2.01 (2.5-4.5 cm2) Mitral Valve MV E Max Javi. 84.0 (40-130 cm/s) MV A Velocity 98.0 (40-130 cm/s) E/A Ratio 0.86 MV Decel. Time 158 (160-240 ms) Left Ventricle The left ventricle is normal size. The left ventricular systolic function is normal. The left ventricular ejection fraction is within the normal range. There is increased LV wall thickness. There is normal LV segmental wall motion. The left ventricular diastolic function is normal. LVEF is 60%. Right Ventricle The right ventricle is normal size. The right ventricular systolic function is normal. Atria Left atrium is mildly dilated. The right atrium size is normal. There is no Doppler evidence of interatrial shunt. Aortic Valve The aortic valve is mildly thickened. There is no aortic valvular stenosis. No aortic regurgitation is present. Mitral Valve The mitral valve is normal in structure. No evidence of mitral valve stenosis. Trace mitral regurgitation. Tricuspid Valve The tricuspid valve leaflets are thin and pliable. Trace tricuspid regurgitation. There is insufficient TR jet to estimate RVSP. Pulmonic Valve The pulmonary valve is normal in structure. Trace pulmonic regurgitation. Great Vessels The aortic root is normal in size. The ascending aorta is not well-visualized. IVC is normal in size and collapses >50% with inspiration. Pericardium There is no pericardial effusion. Other Information Study Quality: Technically Difficult Conclusion Technically difficult study due to poor acoustic windows. Normal biventricular systolic function. Mild LA dilation. No significant valvular stenosis or regurgitation. Electronically signed by : Debora Parker MD 03/04/2024 20:26:14
== END 2024-03-04 23:59 | disposition home or self-care (01) ==
LOC: RAD 13:01
PROVIDERS: PCP Family Medicine; Visit Provider Nurse Practitioner Family
DX: R06.00 Dyspnea, unspecified (principal); I25.10 Atherosclerotic heart disease of native coronary artery without angina pectoris; I11.9 Hypertensive heart disease without heart failure; R94.31 Abnormal electrocardiogram [ECG] [EKG]; I77.810 Thoracic aortic ectasia; Z87.891 Personal history of nicotine dependence
CPT/HCPCS: 36415; 71275; 82565; 84520; 93306; Q9967

== ENCOUNTER 2024-03-25 08:44 | Outpatient (CLI) | payer MEDICARE, SELFPAY ==
--- NOTE | 2024-03-25 08:44 | CT_ITS ---
FINAL REPORT CLINICAL HISTORY: ENARGE lymph NODES COMPARISON: 08/03/2020 and CTA chest 03/04/2024 FINDINGS: Scarring is noted at the lung bases. There is mild fatty infiltration of the liver. The gallbladder is present. The spleen is unremarkable. The adrenals are normal. The pancreas is unremarkable. The kidneys enhance appropriately. There is mild ectasia of the abdominal aorta measuring up to 3.3 x 3.1 cm. Dense vascular calcifications are noted in the abdominal aorta and iliac vessels. Nodes in the left periaortic region are stable from 2019. There are several small inguinal lymph nodes bilaterally measuring up to 1.1 cm in greatest dimension which are essentially stable. Precontrast images demonstrate no nephrolithiasis. IMPRESSION: Small abdominal aortic aneurysm. Stable lymphadenopathy. Reviewed, Interpreted and Dictated by Phu Pappas MD Transcribed by Jenny Victor Authenticated and [facility]
[2024-03-25] MEDS: SODIUM CHLORIDE 0.9% 10ML SYR (RAD ONLY) 10 ML IV (09:32)
[2024-03-25] MEDS: IOPAMIDOL-370 (76%);100ML BOTTLE 75 ML IV (09:32)
== END 2024-03-25 23:59 | disposition home or self-care (01) ==
LOC: RAD 08:44
PROVIDERS: PCP Family Medicine; Visit Provider Internal Medicine
DX: R59.9 Enlarged lymph nodes, unspecified (principal)
CPT/HCPCS: 74178; Q9967

== ENCOUNTER 2024-07-16 07:22 | Day surgery (SDC) | payer MEDICARE, SELFPAY ==
[2024-07-15 13:14] VITALS: BMI 33.5
[2024-07-16] VITALS (8 sets, daily range): BP systolic 96–167; BP diastolic 44–88; PULSE 57–76; RESP 18; TEMP 36.1–36.7; O2SAT 92–98; BMI 33.5
[2024-07-16] MEDS: LACTATED RINGERS 1000ML 1,000 ML 25 ML IV (07:35)
--- NOTE | 2024-07-16 07:59 | P.PNANES_ITS ---
[facility] Disclaimer: The information contained in this section may have been updated after the patient was seen, as this information can be updated by other users. Medical History Enlarged lymph nodes Hoarseness Cancer of larynx History of cancer tonsil Thyroid disease History of radiation therapy Hypothyroidism History of chemotherapy Cerebrovascular accident (CVA) Cancer Atrial fibrillation Arrhythmia CAD (coronary artery disease) Edema Snoring HLD (hyperlipidemia) HTN (hypertension) JC (obstructive sleep apnea) Daytime somnolence Abnormal EKG Ex-smoker Tachycardia Dyspnea Surgical History History of laryngoscopy History of arthroscopy of knee Family History Other Cancer Social History Smoking Status: Former smoker second hand exposure: No alcohol intake: never substance use type: denies use current occupational status: employed and retired Travel in the last 8 weeks: None household members: family housing: house current occupational exposures/hazards: No caffeine: Yes [facility] Anesthesia Checklist Patient Identification Patient Identification: Arm Band and Verbal (Name & ) Structural Data Admitted From: Home Planned Operative Procedure/s: Colonoscopy Consent for Planned Operative Procedure(s) Verified: Yes Verified Documents: Surgical Consent and History and Physical NPO Status Verified Time NPO: 00:00 Additional verifications Anesthesia Reactions: No Hx Blood Transfusions: No Airway Assessment Mallampati Score:: Class II C-Spine Mobility Assessed: Yes TMJ Mobility Assessed: Yes Dentition: Dentures-poor fitting (Removed) Neurological Assessment Level of Consciousness: Awake Hx Seizures: No Numbness or tingling in extremities: No Anesthesia Plan Anesthesia Risk discussed: Yes Anesthesia Plan: Verified ASA Class: III Anesthesia Type: MAC
--- NOTE | 2024-07-16 08:47 | HMH.SCOPE ---
Procedure: Date: 07/16/24 Patient Date of :: 1950 Procedure Performed:: Colonoscopy with polypectomy Indications:: Positive Cologuard Performing Provider:: Piotr Cárdenas MD Referring Provider:: . Sedation:: Monitored anesthesia care Procedure:: After informed consent was obtained the patient was taken to the endoscopy suite. Sedation ensued after the patient was transferred to the left lateral decubitus position. Pulse, blood pressure, and oxygen saturation were monitored throughout the procedure. Digital rectal exam revealed no significant abnormality. The colonoscope was placed in position. The entire colon was evaluated. The colonoscope was carefully removed and the patient was transferred to recovery in stable condition. Please see findings and specimens below for detail. Findings:: Bowel preparation moderate Severe spasticity Moderate tortuosity Scattered cecal AVMs Sigmoid diverticulosis Polyps (see specimens) Large sessile polyp at 60 cm not removed; however, tattoo was placed just distal to this polyp. Removal deferred to the gastroenterology service. Specimens:: Small sessile proximal right colon polyp (cold biopsy forceps) Large complex lobulated ridge polyp of the right colon (hot snare and tattoo) 7 mm sessile polyp at 80 cm (cold snare) Lobulated complex polyp at 35 cm (hot snare) Anal canal polyp (hot snare) Recommendations:: Repeat colonoscopy in 2-3 months (deferred to the gastroenterology service) secondary to evaluation of large sessile polyp at 60 cm, as well as, need for short-term reevaluation due to size/nature/number of polyps, moderate bowel preparation, and severe spasticity. Complications:: No immediate Estimated blood obtained (mL): 1 Colonoscopy Component Colonoscopy Component Was a colonoscopy performed during today's procedure?: Yes Recommended follow up colonoscopy of at least 10 years?: No If no, follow up colonoscopy recommended in ___ years?: (See above) Reason for not recommending >/= 10 yr follow-up interval?: (See above)
== END 2024-07-16 11:50 | disposition home or self-care (01) ==
PROVIDERS: PCP Nurse Practitioner; Visit Provider Surgery
PROC: 0DJD8ZZ Inspection of Lower Intestinal Tract, Via Natural or Artificial Opening Endoscopic (ICD-10-PCS; CPT 45380; principal; 2024-07-16 08:30)
DX: Z12.11 Encounter for screening for malignant neoplasm of colon (principal); Z80.9 Family history of malignant neoplasm, unspecified; R19.5 Other fecal abnormalities; K55.20 Angiodysplasia of colon without hemorrhage; K57.30 Diverticulosis of large intestine without perforation or abscess without bleeding; D12.2 Benign neoplasm of ascending colon; D12.4 Benign neoplasm of descending colon; K63.5 Polyp of colon
CPT/HCPCS: 45380; 45381; 45385; 88305; J2704; J7120

== ENCOUNTER 2024-10-28 06:25 | Day surgery (SDC) | payer MEDICARE, SELFPAY ==
[2024-10-25 13:00] VITALS: BMI 32.8
[2024-10-28 06:42] VITALS: BP 179/72; PULSE 59; RESP 18; TEMP 36.4; O2SAT 95
[2024-10-28] MEDS: LACTATED RINGERS 1000ML 1,000 ML 50 ML IV ×2 (07:01→08:05)
--- NOTE | 2024-10-28 07:17 | EXP.ANES.CKL ---
[facility] Disclaimer: The information contained in this section may have been updated after the patient was seen, as this information can be updated by other users. Medical History (Updated 10/28/24 @ 06:50 by Adeline Miranda RN) History of COVID-19 Throat cancer Abdominal aortic aneurysm (AAA) Colon polyp Enlarged lymph nodes Hoarseness Cancer of larynx History of cancer tonsil Thyroid disease History of radiation therapy Hypothyroidism History of chemotherapy Cerebrovascular accident (CVA) Cancer Atrial fibrillation Arrhythmia CAD (coronary artery disease) Edema Snoring HLD (hyperlipidemia) HTN (hypertension) JC (obstructive sleep apnea) Daytime somnolence Abnormal EKG Ex-smoker Tachycardia Dyspnea Surgical History History of colonoscopy History of laryngoscopy History of arthroscopy of knee Family History (Updated 10/28/24 @ 06:49 by Adeline Miranda RN) Other Cancer Lung cancer Social History (Updated 10/28/24 @ 06:50 by Adeline Miranda RN) Smoking Status: Former smoker second hand exposure: No alcohol intake: current alcohol intake frequency: 3 or more drinks per day substance use type: denies use current occupational status: retired Travel in the last 8 weeks: None household members: family housing: house current occupational exposures/hazards: No caffeine: Yes Have you lived/traveled outside [place] in past 30 days?: No Contact w/someone who lives/traveled outside [place] past 30 days?: No Exposure to someone with infectious disease in past 14 days?: No Do you have a fever (greater than 100.4 F or 38 C)?: No Have you tested positive for COVID-19: No Exposed to someone with COVID-19 in past 14 days?: No Do you have a sore throat?: No Do you have a cough?: No Do you have any weakness?: No Are you experiencing any nausea/vomitting?: No Do you have any diarrhea?: No Are you experiencing any unusual bleeding?: No Do you have any muscle aches/pain?: No Do you have any abdominal pain?: No Are you experiencing loss of taste or smell?: No [facility] Anesthesia Checklist Patient Identification Patient Identification: Verbal (Name & ) Structural Data Admitted From: Home Planned Operative Procedure/s: colonoscopy NPO Status Verified Time NPO: 00:00 Additional verifications Anesthesia Reactions: No Hx Blood Transfusions: No Airway Assessment Mallampati Score:: Class II C-Spine Mobility Assessed: Yes TMJ Mobility Assessed: Yes Dentition: Dentures-good fit Neurological Assessment Level of Consciousness: Awake, Alert and Appropriate Anesthesia Plan Anesthesia Risk discussed: Yes Anesthesia Plan: Verified ASA Class: II Anesthesia Type: MAC
[2024-10-28 07:34] VITALS: O2SAT 100
--- NOTE | 2024-10-28 07:34 | EXP.HP ---
History of Present Illness *Admission Date: 10/28/24 *Reason for visit:: Personal history of adenomatous colon polyps *History of present illness: Mr. Marroquin is a 74-year-old gentleman who is here for follow-up surveillance colonoscopy secondary to history of larger adenomatous colon polyps and a polyp that was difficult to remove at last exam in July. The examination is deemed medically necessary for removal of large advanced adenomatous polyp. The patient has been seen, interviewed and examined prior to the procedure by both myself and the anesthesia provider. [facility] Disclaimer: The information contained in this section may have been updated after the patient was seen, as this information can be updated by other users. Medical History (Updated 10/28/24 @ 07:36 by Terry Mann II, MD) History of COVID-19 Throat cancer Abdominal aortic aneurysm (AAA) Colon polyp Enlarged lymph nodes Hoarseness Cancer of larynx History of cancer tonsil Thyroid disease History of radiation therapy Hypothyroidism History of chemotherapy Cerebrovascular accident (CVA) Cancer Atrial fibrillation Arrhythmia CAD (coronary artery disease) Edema Snoring HLD (hyperlipidemia) HTN (hypertension) JC (obstructive sleep apnea) Daytime somnolence Abnormal EKG Ex-smoker Tachycardia Dyspnea Surgical History History of colonoscopy History of laryngoscopy History of arthroscopy of knee Family History (Updated 10/28/24 @ 06:49 by Adeline Miranda RN) Other Cancer Lung cancer Social History (Updated 10/28/24 @ 06:50 by Adeline Miranda RN) Smoking Status: Former smoker second hand exposure: No alcohol intake: current alcohol intake frequency: 3 or more drinks per day substance use type: denies use current occupational status: retired Travel in the last 8 weeks: None household members: family housing: house current occupational exposures/hazards: No caffeine: Yes Have you lived/traveled outside US in past 30 days?: No Contact w/someone who lives/traveled outside US past 30 days?: No Exposure to someone with infectious disease in past 14 days?: No Do you have a fever (greater than 100.4 F or 38 C)?: No Have you tested positive for COVID-19: No Exposed to someone with COVID-19 in past 14 days?: No Do you have a sore throat?: No Do you have a cough?: No Do you have any weakness?: No Are you experiencing any nausea/vomitting?: No Do you have any diarrhea?: No Are you experiencing any unusual bleeding?: No Do you have any muscle aches/pain?: No Do you have any abdominal pain?: No Are you experiencing loss of taste or smell?: No Other Medical History Have you received the Flu Vaccine for this season: No Have you received the Pneumonia Vaccine: No Review of Systems Review of Systems Review of systems (narrative): Negative *Cardiovascular Comments: Negative *Gastrointestinal Comments: Negative *Genitourinary Comments: Negative *Musculoskeletal Comments: Negative *Neurologic Comments: Negative Meds Home Medications and Allergies Home Medications ?Medication ?Instructions ?Recorded ?Confirmed ?Type spironolactone 25 mg tablet 25 mg PO DAILY 11/08/22 10/25/24 History metoprolol succinate 50 mg 50 mg PO DAILY Hypertension #90 01/04/23 10/25/24 Rx tablet,extended release 24 hr tabs atorvastatin 80 mg tablet 80 mg PO DAILY 02/20/24 10/28/24 History levothyroxine 175 mcg tablet 200 mcg PO DAILY 02/20/24 10/28/24 History (Synthroid) omeprazole 40 mg capsule,delayed 40 mg PO DAILY #30 caps 05/15/24 10/25/24 Rx release sodium,potassium,mag sulfates 17.5 See Rx Instructions PO .COMPLEX 10/21/24 10/25/24 Rx gram-3.13 gram-1.6 gram oral soln #354 mL (Suprep Bowel Prep Kit) peg 3350-electrolytes 236 240 ml PO Q10M colonscopy #4,000 mL 10/25/24 10/25/24 Rx gram-22.74 gram-6.74 gram-5.86 gram solution (Golytely) New Prescriptions to Start Prescriptions: Allergies Allergy/AdvReac Type Severity Reaction Status Date / Time No Known Allergies Allergy Verified 10/28/24 06:42 Exam Data for Last 24 hours Vital signs and Labs for Last 24 Hours: Temp Pulse Resp BP Pulse Ox O2 Del Method 97.6 F 59 L 18 179/72 H 95 Room Air 10/28/24 06:42 10/28/24 06:42 10/28/24 06:42 10/28/24 06:42 10/28/24 06:42 10/28/24 06:42 I & O for Last 24 hours: Intake & Output 10/25/24 10/26/24 10/27/24 10/28/24 23:59 23:59 23:59 23:59 Weight 235 lb *Routine HEENT Exam Head: Present normocephalic Eye: Present EOMI and PERRL ENT: Present mucous membranes moist *Routine Neck Exam Neck: Present supple *Routine Respiratory Exam Respiratory: Present CTA bilaterally *Routine Cardiovascular Exam Cardiovascular: Present RRR *Routine Abdominal Exam Abdominal: Present soft and normoactive bowel sounds; Absent tenderness *Routine Rectal Exam Rectal:: deferred *Routine Genitalia Exam Genitalia:: deferred *Routine Extremities Exam Extremities: Absent cyanosis, clubbing or edema *Routine Skin Exam Skin: Present warm; Absent rash *Routine Neurological Exam Neurological: Present alert and oriented X3 Assessment and Plan *Assessment and plan (1) Tubular adenoma of colon: Status: Acute Category: Medical Code(s): D12.6 - Benign neoplasm of colon, unspecified (2) Personal history of adenomatous and serrated colon polyps: Status: Acute Category: Medical Code(s): Z86.0101 - Personal history of adenomatous and serrated colon polyps (3) Positive colorectal cancer screening using Cologuard test: Status: Acute Category: Medical Code(s): R19.5 - Other fecal abnormalities Plan A/P: 1. Larger adenomatous colon polyp detected in July 2024 with difficult removal is the preprocedural diagnosis. The patient will be anesthetized/sedated using MAC sedation. The patient has been seen and examined. Cardiac and lung assessment prior to the examination is stable. Proceed with planned repeat surveillance colonoscopy with removal of polyp
--- NOTE | 2024-10-28 07:36 | P.PCN_ITS ---
[facility] Procedure Note Date: 10/28/24 Time: 07:54 Procedure Note:: Colonoscopy Procedure Report: Colonoscopy with cold snare polypectomy Endoscopist: Terry Mann II, MD Referring physician: Michelle RANGEL Date of Procedure: October 28, 2024 Equipment: Olympus 190 variable stiffness pediatric colonoscope Sedation: MAC sedation Indication: Mr. Marroquin is a 74-year-old gentleman who returns today after having colonoscopy in July 2024 (Piotr Cárdenas M.D.). The patient had been initially referred due to a positive Cologuard. The patient did have a large lobulated ridge polyp of the right colon and a lobulated complex polyp at 35 cm. He had multiple adenomatous colon polyps. Repeat surveillance is performed because the large sessile polyp at 60 cm was difficult to remove. The patient reports no abdominal pain, weight loss, change in his bowel habits or rectal bleeding. He reports no family history of colon cancer. Procedure: Prior to the procedure, a history and physical exam was performed, and patient's medications and allergies were reviewed. The risks, benefits and alternatives of the sedation and procedure were discussed with the patient. All questions were answered and informed consent was obtained. The patient was brought to the procedure room. Patient identification and proposed procedure were verified by the physician and the nurse. The patient was placed in a left lateral decubitus position and the scope was passed under direct vision. Throughout the procedure, the patient's blood pressure, pulse, and oxygen saturations were monitored continuously. The colonoscopy was accomplished without difficulty. The patient tolerated the procedure well. Findings: On digital rectal examination there was normal rectal tone. There were no external hemorrhoids. The prostate was 2+, mildly firm but symmetric without nodules. The colonoscope was introduced through the anal canal to the rectum and advanced to the cecum. The ileocecal valve and appendiceal orifice were identified. The scope was advanced a short distance into the ileum which appe ared grossly normal. The scope was then withdrawn into the colon. There were 4 polyps (cecum x 1 (5 mm), ascending x 1 (4 mm) and descending x 2 (flat 6 mm and 5 mm)). These were all removed via cold snare polypectomy. Narrowband imaging was utilized. There was Ruth ink or spot ink in the ascending/transverse from prior colonoscopy. The remaining cecum, ascending and transverse colon and muc jackie were grossly normal. There were scattered diverticuli throughout the descending and sigmoid colon (LEFT colon). The rectum itself was normal. Upon retroflexion within the rectum there were 2 internal hemorrhoids. The preparation was excellent throughout with [place] Preparation Score of 9. The cecal time was 13 minutes. Impression: 1. Diminutive colonic polyps x 4 2. Left-sided diverticulosis 3. Grade 2 internal hemorrhoids Plan: I will follow-up the polyp histology and recommend repeat surveillance colonoscopy in 3 years based on recent prior larger advanced adenomatous polyps and present polyp histology. I would encourage psyllium bulking fiber supplementation on a long-term daily maintenance basis.
[2024-10-28 08:00] VITALS: BP 110/65; PULSE 74; RESP 16; TEMP 36.3; O2SAT 96
[2024-10-28 08:10] VITALS: BP 114/55; PULSE 71; RESP 18; O2SAT 95
[2024-10-28 08:20] VITALS: BP 148/71; PULSE 78; RESP 16; O2SAT 95
[2024-10-28 08:26] VITALS: BP 158/71; PULSE 69; RESP 16; O2SAT 97
== END 2024-10-28 08:33 | disposition home or self-care (01) ==
PROVIDERS: PCP Nurse Practitioner; Visit Provider Internal Medicine Gastroenterology
PROC: 0DJD8ZZ Inspection of Lower Intestinal Tract, Via Natural or Artificial Opening Endoscopic (ICD-10-PCS; CPT 45378; principal; 2024-10-28 08:00)
DX: K63.5 Polyp of colon (principal); K57.30 Diverticulosis of large intestine without perforation or abscess without bleeding; K64.1 Second degree hemorrhoids; D12.6 Benign neoplasm of colon, unspecified; Z86.0101 Personal history of adenomatous and serrated colon polyps
CPT/HCPCS: 45385; J7120

== ENCOUNTER 2025-03-17 07:30 | Outpatient (CLI) | payer MEDICARE, SELFPAY ==
--- OUTSIDE RECORDS SUMMARY | 2025-03-17 07:33 | XMS_ITS | Encounter Summary ---
[facility] Address [address] [place] [address] Care Team Providers Care Iridologist Name Role Phone Arthur Moore MD Primary Care Provider [phone] Encounter Details Date Type Department Care Team (Late st Contact Info) Description 03/10/2021 Telephone [facility] [address] [place] [id number] Winsome Miller RegSched Rep Social History Tobacco Use Types Packs/Day Years Used Date Smoking Tobacco: Former Cigarettes 2.5 37 1 965 - 2002 Smokeless Tobacco: Never Alcohol Use Standard Drinks/Week Comments Not Currently 0 (1 standard drink = 0.6 oz pur e alcohol) Sex and Gender Information Value Date Recorded Sex Assigned at Not on file Legal Sex Male 2:56 PM EDT Gender Identity Not on file Sexual Orientation Not on file documented as of this encounter Plan of Treatment Not on file documented as of this encounter Visit Diagnoses Not on filedocumented in this encounter Additional Health Concerns Infection Onset Date Last Indicated Resolved Time COVID (History) 06/19/2020 07/09/2020 documented as of this encounter Care Teams Iridologist Relationship Specialty Start Date End Date Arthur Moore MD [address] [place] [address] [place] [id number] PCP - General Family Medicine 06/02/20 documented as of this encounter
--- OUTSIDE RECORDS SUMMARY | 2025-03-17 07:33 | XMS_ITS | Clinical Summary ---
[facility] Address [address] [place] [address] Care Team Providers Care Cloth Winding Supervisor Name Role Phone Arthur Moore MD Primary Care Provider [phone] Allergies No known active allergies Medications levothyroxine (SYNTHROID, LEVOTHROID) 100 MCG tablet Take 100 mcg by mouth Daily. Active famotidine (PEPCID) 20 MG tablet Take 1 tablet by mouth 2 (Two) Times a Day. 60 tablet 08/13/2020 Active spironolactone (ALDACTONE) 25 MG tablet Take 25 mg by mouth Daily. Active atorvastatin (LIPITOR) 40 MG tablet Take 40 mg by mouth Daily. Active Active Problems Problem Noted Date Diagnosed Date Head and neck cancer 08/12/2020 Failure to thrive in adult 08/12/2020 Moderate malnutrition 08/12/2020 Larynx cancer 06/04/2020 Cancer Staging:Clinical stage from 05/25/2020:Stage MABLE(cT2, cN2b, cM0) - Unsigned Bradycardia 06/04/2020 History of tobacco abuse 06/04/2020 Hyperlipidemia 06/04/2020 Essential hypertension 06/04/2020 Cerebrovascular accident (CVA) 06/04/2020 Resolved Problems Problem Noted Date Diagnosed Date Resolved Date Dehydration 08/12/2020 08/13/2020 Acute kidney injury 08/12/2020 08/13/19 21 Immunizations Immunization Administration Dates Next Due COVID-19 (PFIZER) Purple Cap Monovalent 12/13/19 21,11/17/2020 Family History Medical History Relation Name Comments Lung cancer Father Lung cancer Mother Relation Name Status Comments Father Mother Social History Tobacco Use Types Packs/Day Years Used Date Smoking Tobacco: Former Cigarettes 2.5 37 1 965 - 2002 Smokeless Tobacco: Never Alcohol Use Standard Drinks/Week Comments Not Currently 0 (1 standard drink = 0.6 oz pur e alcohol) Abuse Screen Answer Date Recorded Unsafe at Home or Work/School Not on file Feels Threatened by Someone? Not on file 07/2023 Does Anyone Keep You from Co ntacting Others or Doint Things Outside the Home? Not on file 05/18/2023 Physical Sign of Abuse Present Not on file 1 Housing Stability Answer Date Recorded Current Living Arrangements Not on file 05/07 Potentially Unsafe Housing Conditions Not on mariam e 05/18/2023 Family and Community Support Answer Jerda e Recorded Help with Day-to-Day Activities Not on file 05/18/2023 Lonely or Isolated Not on file 05/18/2023 Employment Answer Date Recorded Do you want help finding or keeping work or a mellissa b? Not on file 05/18/2023 Disabilities Answer Date Recorded Concentrating, Remembering, or Making Decisions Difficulty Not on file 05/18/2023 Doing Errands Independently Difficulty Not on fi le 05/18/2023 Education Answer Date Recorded Help with school or training? Not on file Preferred Language Not on file 05/18/2023 Sex and Gender Information Value Date Recorded Sex Assigned at Not on file Legal Sex Male 2:56 PM EDT Gender Identity Not on file Sexual Orientation Not on file Last Filed Vital Signs Vital Sign Reading Time Taken Comments Blood Pressure 174/82 09/13/2021 9:59 AM EST Pulse 82 09/13/2021 9:59 AM EST Temperature 36.6 C (97.9 F) 09/13/2021 9:59 AM EST Respiratory Rate 16 09/13/2021 9:59 AM EST Oxygen Saturation 95% 09/13/2021 9:59 AM EST RA Inhaled Oxygen Concentration - - Weight 105 kg (231 lb) 09/13/2021 9:59 AM EST Height 180.3 cm (5' 11 ) 09/13/2021 9:59 AM EST Body Mass Index 32.22 09/13/2021 9:59 AM EST Plan of Treatment Health Maintenance Due Date Last Done Comments LIPID PANEL 1952 TDAP/TD VACCINES (1 - Tdap) 1971 COLOGUARD 1997 COLON CANCER SCREENING 5 YEA R SIGMOIDOSCOPY 1997 COLONOSCOPY [address] CANCER SCREENING 1997 CT COLONOGRAPHY 1997 FECAL OCCULT BLOOD TEST 1997 FIT Testing (1 year) 1997 Pneumococcal Vaccine 50+ (1 of 1 - PCV) 2002 ZOSTER VACCINE (1 of 2) 2002 AAA SCREEN ONCE 2017 ANNUAL PHYSICAL 06/03/2020 HEPATITIS C SCREENING 06/03/2020 AUTOMOTIVE ELECTRICIAN HELPER PLAN OF CARE 01/17/2021 10/19/2020, , 07/23/2020 COVID-19 Vaccine ( season) 04/07/202403/2021, 11/17/2020 INFLUENZA VACCINE 05/07/2025 Medical Devices Implanted Type Area [employer] Nurse Device Identifier Shelf Expiration Date Model / Serial / Lot Implant Description:bilat knee repla cements, dental bridge Additional Health Concerns Infection Onset Date Last Indicated COVID (History) 06/19/2020 07/09/2020 Insurance PPO Advance Directives Documents on File Type Date Recorded Patient Live In Caregiver Expl anation LIVING WILL - SCAN 08/12/2020 12:11 PM KITTY MINA, BHLEX, 08/12/20 * No CPR (Do Not Attempt to Resuscitate) (Latest Code Status on File) Date Activated Date Inactivated Comments 08/12/2020 4:01 PM 08/13/2020 8:19 PM Question Answer Comments Code Status (Patient has no pulse and is not breathing): No CPR (Do Not Attempt to Resuscitate) Medical Interventions (Patie nt has pulse or is breathing): Limited Medical Intervention Limits: IntubationC ardioversion/Defibrillat ion Level Of Support Discussed With: Patient * CPR (Attempt to Resuscitate) Date Activated Date Inactivated Comments 08/12/2020 2:06 PM 08/12/2020 4:01 PM Question Answer Comments Code Status (Patient has no pulse and is not breathing): CPR (Attempt to Resuscitate) Medical Interventions (Carlye nt has pulse or is breathing): Full Level Of Support Discussed With: Patient Care Teams Cloth Winding Supervisor Relationship Specialty Start Date End Date Arthur Moore MD [facility] [address] [facility] [address] [place] [address] PCP - General Family Medicine 06/02/20
--- NOTE | 2025-03-17 08:00 | US_ITS ---
FINAL REPORT CLINICAL HISTORY: AAA FINDINGS: ULTRASOUND ABDOMINAL AORTA Findings: Sagittal and transverse images with Doppler exam was performed of the aorta. Again seen is an abdominal aortic aneurysm measuring 34 mm. There is a mildly aneurysmal iliac vessel measuring 14 mm. However, no transverse imaging was submitted to determine if this is right or left. Aorta is patent by Doppler exam without gross stenosis. IMPRESSION: Mild abdominal aortic aneurysm measuring up to 34 mm with involvement of a common iliac artery. Recommend continued sonographic evaluation or CT. Reviewed, Interpreted and Dictated by Willa Reyna MD Transcribed by Lorena Fermin Authenticated and [facility]
[2025-03-17 08:13] LABS: Blood Urea Nitrogen 18 mg/dl (9-20); Creatinine,Serum 0.90 mg/dl (0.66-1.25); Estimated Glomerular Filt Rate 83 ml/min (>60); GFR (African American) 100 ML/MIN (>60)
[2025-03-17] MEDS: 0.9 % SODIUM CHLORIDE 50 ML VIAL IV (08:43)
[2025-03-17] MEDS: SODIUM CHLORIDE 0.9% 10ML SYR (RAD ONLY) 10 ML IV (08:44)
[2025-03-17] MEDS: IOPAMIDOL-370 (76%);100ML BOTTLE 100 ML IV (08:44)
--- NOTE | 2025-03-17 08:45 | CT_ITS ---
FINAL REPORT TECHNIQUE: Thin section axial CT with contrast with multiplanar reconstruction This study was performed with techniques to keep radiation doses as low as reasonably achievable, (ALARA). Individualized dose reduction techniques using automated exposure control or adjustment of mA and/or kV according to the patient''s size were employed. CLINICAL HISTORY: AAA COMPARISON: 03/04/2024 FINDINGS: CTA: There is moderate, diffuse plaque of the aorta. Aortic arch branch vessels are mildly stenotic without critical stenosis. There is mild ascending aortic aneurysm measuring 39 mm which is unchanged. Descending thoracic aorta is normal in caliber. CT chest: There is stable bilateral gynecomastia. Stable, mild scarring is seen at the right lung base. There is no significant pleural effusion. There is no significant pericardial effusion. No mediastinal or hilar adenopathy is present. IMPRESSION: Stable borderline fusiform aneurysm of the ascending aorta. No acute intrathoracic findings. Reviewed, Interpreted and Dictated by Willa Reyna MD Transcribed by Lorena Fermin Authenticated and [facility]
== END 2025-03-17 23:59 | disposition home or self-care (01) ==
LOC: RAD 07:31
PROVIDERS: PCP Nurse Practitioner; Visit Provider Nurse Practitioner Family
DX: I25.10 Atherosclerotic heart disease of native coronary artery without angina pectoris (principal); I10 Essential (primary) hypertension; I71.40 Abdominal aortic aneurysm, without rupture, unspecified; R94.31 Abnormal electrocardiogram [ECG] [EKG]
CPT/HCPCS: 36415; 71275; 76706; 82565; 84520; Q9967